=== PATIENT | female | born 1975 | race Caucasian/White ===

== ENCOUNTER 2018-06-23 07:53 | Emergency (ER) | payer SELFPAY ==
[~2018-06-23] VITALS: Ht 165.1 cm; Wt 89.4 kg
[~2018-06-23 07:53] MED LIST: ACET250T2 PO; ALBU2.5V5 IH; ALBU8.5H6 IH; CHOL100013 PO; FERR325T14 PO; FERR325T58 PO; METF10007 PO; METF500T16 PO; METF500T9 PO; MULT-208 PO; OXYC1TAB15 PO; PRED50TA PO; TOPI100T8 PO; TOPI200T6 PO
[2018-06-23] MEDS ORDERED: IBUPROFEN 600 MG TABLET. PO ONE (08:45)
[2018-06-23] MEDS ORDERED: HYDROcodone/APAP 5/325MG 1 TAB TABLET PO ONE (08:45)
--- NOTE | 2018-06-23 08:45 | PHYS DOC ---
Past Medical History Past Medical History: Diabetes-Type II, UTI Additional Past Medical Histor: psuedo tumors, obesity Past Surgical History: Tubal ligation Additional Past Surgical Histo: hernia repair,gallbladder Alcohol Use: None Drug Use: None Adult General Chief Complaint Chief Complaint: PAIN ON URINATION HPI HPI 42-year-old female presents to ER via POV with complaints of dysuria, urinary frequency, and intermittent abdominal cramping. Patient reports pain started yesterday and has gradually worsened patient reports history of UTIs denies any recent treatment. Patient states she's had full hysterectomy. Patient denies any vaginal symptoms or concerns for STDs. Patient denies any dxvl-dbm-[id number] medications for pain today but states she did take pain medication yesterday including Tylenol and hydrocodone. Patient states she did have 2 alcoholic beverages last night times denies nausea or vomiting. She denies any diarrhea. Patient denies fever or chills. Review of Systems Review of Systems Constitutional: Denies fever or chills [] Respiratory: Denies cough or shortness of breath [] Cardiovascular: No additional information not addressed in HPI [] GI: Denies nausea, vomiting, bloody stools or diarrhea. Reports right lower abdominal pain intermittent radiating into right lower back : Reports dysuria and urinary frequency. Denies hematuria or incontinence. Denies vaginal symptoms Musculoskeletal: Denies joint pain. Reports right lower abdominal pain does radiate into lower back intermittently Integument: Denies rash, swelling or skin lesions [] Neurologic: Denies headache, focal weakness or sensory changes [] Endocrine: Denies polyuria or polydipsia [] All other systems were reviewed and found to be within normal limits, except as documented in this note. Current Medications Current Medications Current Medications Medications (Trade) Dose Ordered Sig/Douglas Start Time Stop Time Status Last Admin Dose Admin Acetaminophen/ Hydrocodone Bitart (Lortab 5/325) 1 tab 1X ONCE 06/23/18 08:45 06/23/18 08:46 DC 06/23/18 08:49 1 TAB Ceftriaxone Sodium (Rocephin) 1 gm 1X ONCE 06/23/18 10:00 06/23/18 10:05 DC 06/23/18 10:48 1 GM Ibuprofen (Motrin) 600 mg 1X ONCE 06/23/18 08:45 06/23/18 08:46 DC 12/29/18 08:49 600 MG Allergies Allergies Allergies Coded Allergies Type Severity Reaction Last Updated Verified No Known Drug Allergies 03/31/16 No Physical Exam Physical Exam Constitutional: Well developed, well nourished, mild distress on initial exam, non-toxic appearance. [] HENT: Normocephalic, atraumatic, oropharynx moist, nose normal. [] Eyes: Pupils equal, conjunctiva normal, no discharge. [] Neck: Normal range of motion, supple Cardiovascular: Heart rate regular rhythm, no murmur [] Lungs & Thorax: Bilateral breath sounds clear to auscultation. Resp. equal/ nonlabored Abdomen: Bowel sounds normal, soft, mild diffuse tenderness suprapubic into right side abdomen with no focal area or rebound tenderness. No distention or rigidity. No masses, no pulsatile masses. [] Skin: Warm, dry, no erythema, no rash. [] Back: No tenderness, no CVA tenderness. [] Extremities: No tenderness, ROM intact, no edema. [] Neurologic: Alert and oriented X 3, normal motor function, normal sensory function, no focal deficits noted. [] Psychologic: Affect normal, judgement normal, mood normal. [] Current Patient Data Vital Signs Vital Signs Date Time Temp Pulse Resp B/P (MAP) Pulse Ox O2 Delivery O2 Flow Rate FiO2 06/23/18 11:21 85 20 126/67 (86) 99 06/23/18 08:32 98.6 98.6 Lab Values Laboratory Tests Test 06/23/18 08:25 06/23/18 10:10 Urine Collection Type Unknown Urine Color Yellow Urine Clarity Turbid Urine pH 6.0 Urine Specific War 1.015 Urine Protein 100 mg/dL (NEG-TRACE) Urine Glucose (UA) Negative mg/dL (NEG) Urine Ketones (Stick) Negative mg/dL (NEG) Urine Blood Large (NEG) Urine Nitrite Positive (NEG) Urine Bilirubin Negative (NEG) Urine Urobilinogen Dipstick 0.2 mg/dL (0.2 mg/dL) Urine Leukocyte Esterase Large (NEG) Urine RBC 20-40 /HPF (0-2) Urine WBC >40 /HPF (0-4) Urine Squamous Epithelial Cells Few /LPF Urine Bacteria Many /HPF (0-FEW) White Blood Count 11.4 x10^3/uL (4.0-11.0) H Red Blood Count 4.69 x10^6/uL (3.50-5.40) Hemoglobin 13.5 g/dL (12.0-15.5) Hematocrit 38.9 % (36.0-47.0) Mean Corpuscular Volume 83 fL (79-100) Mean Corpuscular Hemoglobin 29 pg (25-35) Mean Corpuscular Hemoglobin Concent 35 g/dL (31-37) Red Cell Distribution Width 13.5 % (11.5-14.5) Platelet Count 161 x10^3/uL (140-400) Neutrophils (%) (Auto) 81 % (31-73) H Lymphocytes (%) (Auto) 10 % (24-48) L Monocytes (%) (Auto) 7 % (0-9) Eosinophils (%) (Auto) 2 % (0-3) Basophils (%) (Auto) 1 % (0-3) Neutrophils # (Auto) 9.2 x10^3uL (1.8-7.7) H Lymphocytes # (Auto) 1.1 x10^3/uL (1.0-4.8) Monocytes # (Auto) 0.7 x10^3/uL (0.0-1.1) Eosinophils # (Auto) 0.2 x10^3/uL (0.0-0.7) Basophils # (Auto) 0.1 x10^3/uL (0.0-0.2) Sodium Level 137 mmol/L (136-145) Potassium Level 4.1 mmol/L (3.5-5.1) Chloride Level 103 mmol/L (98-107) Carbon Dioxide Level 25 mmol/L (21-32) Anion Gap 9 (6-14) Blood Urea Nitrogen 16 mg/dL (7-20) Creatinine 0.7 mg/dL (0.6-1.0) Estimated GFR (Cockcroft-Gault) 92.7 Glucose Level 163 mg/dL (70-99) H Calcium Level 8.3 mg/dL (8.5-10.1) L Laboratory Tests 06/23/18 10:10 Laboratory Tests 06/23/18 10:10 EKG EKG [] Radiology/Procedures Radiology/Procedures PROCEDURE: CT ABDOMEN PELVIS WO CONTRAST CT of the abdomen and pelvis without contrast, 06/23/2018: HISTORY: Right-sided flank pain, hematuria, dysuria Noncontrast scans were obtained with multiplanar reconstructions produced. No intrarenal calculi are identified. There are mildly prominent extrarenal pelves bilaterally. Portions of the right ureter are mildly prominent. No radiopaque ureteral calculus is evident. The urinary bladder is mildly distended. The unopacified liver is unremarkable. The gallbladder is surgically absent. No pancreatic abnormality is seen. The spleen is within normal limits in size. The abdominal aorta is unremarkable. No abdominal or pelvic adenopathy is seen. The uterus appears to be surgically absent. There is a moderate amount stool in the right colon. A medium density structure along the base of the cecum probably what represents complicated fluid in the cecum. A portion of the appendix is visualized and it is unremarkable. No free air or free fluid is evident in the abdomen or pelvis. IMPRESSION: 1. No urinary tract calculi are identified. 2. Mildly distention of the renal pelves may related to mild bladder distention. No obstructing ureteral process is identified. 3. Density along the base of the cecum which probably represents complicated fluid in the cecum. A cecal mass is less likely. CT follow-up to include GI tract contrast may be useful for further evaluation. PQRS Compliance Statement: One or more of the following individualized dose reduction techniques were utilized for this examination: 1. Automated exposure control 2. Adjustment of the mA and/or kV according to patient size 3. Use of iterative reconstruction technique Electronically signed by: Jose Luis Reddy MD (06/23/2018 10:37 AM) [facility] DICTATED and SIGNED BY: JOSE LUIS REDDY MD DATE: 06/23/18 1021 Course & Med Decision Making Course & Med Decision Making Pertinent Labs and Imaging studies reviewed. (See chart for details) 0935: On reevaluation patient reports her pain has improved since receiving medications. Labs discussed with WBCs at 11.4 no bands and BMP with NL renal function BUN/Cr 16/0.7. Discussed UA results with large blood and leuks positive nitrates and Micro showing 20-40 RBCs with more than 40 WBCs. Discussed plans to obtain CT abdomen and pelvis as patient reports she thinks she had previous history of kidney stones. Discussed CT results with pt and her husb. with report of "1. No urinary tract calculi are identified. 2. Mildly distention of the renal pelves may related to mild bladder distention. No obstructing ureteral process is identified. 3. Density along the base of the cecum which probably represents complicated fluid in the cecum". Discussed outpt f/u with PCP and/or GI for further eval. for density reporteed on CT. Pt was given IV Rocephin and will be discharged with Rx for Levaquin and Pyridium. Discussed if sxs persist f/u with PCP for re- eval and further care. OTC ibuprofen and/or tylenol PRN. Pt on re-exam is nontoxic in appearance and in no visible distress. Discharge instructions discussed. Pt comfortable with discharge plan as discussed. Education provided on s&s to return to ER for. Pt's case and plan of care was discussed with Dr. Cordova. Shelby Disclaimer Shelby Disclaimer This electronic medical record was generated, in whole or in part, using a voice recognition dictation system. Departure Departure Impression: Primary Impression: UTI (urinary tract infection) Disposition: HOME, SELF-CARE Condition: STABLE Referrals: NO PCP (PCP) SANGEETHA EMMANUEL MD Patient Instructions: Urinary Tract Infection Additional Instructions: Drink plenty of fluids. Tylenol and/or ibuprofen as needed for pain as directed on container. If symptoms persist or with concerns follow-up with your primary care physician in next 7 days for reevaluation. As discussed recommended follow-up with primary care physician or GI ( gastrointestinal) doctor for further evaluation. Scripts Levofloxacin (LEVAQUIN) 500 Mg Tablet 1 TAB PO DAILY, #5 TAB 0 Refills Prov: JAIRO SALCIDO APRN 06/23/18 Phenazopyridine Hcl (PYRIDIUM) 100 Mg Tablet 100 MG PO TID PRN for PAIN, #9 TAB 0 Refills Prov: JAIRO SALCIDO APRN 06/23/18 JAIRO SALCIDO APRN Jun 23, 2018 08:45
[2018-06-23 08:48] LABS: BILIRUBIN,URINE NEGATIVE (NEG); CLARITY,URINE TURBID; COLOR,URINE YELLOW; NITRITE,URINE POSITIVE (NEG); PROTEIN,URINE 100 mg/dL (NEG-TRACE); UROBILINOGEN,URINE 0.2 mg/dL (0.2 mg/dL)
[2018-06-23 09:30] LABS: BACTERIA,URINE MANY /HPF (0-FEW); RBC,URINE 20-40 /HPF (0-2); SQUAMOUS EPITHELIAL CELL,UR FEW /LPF; WBC,URINE >40 /HPF (0-4)
[2018-06-23] MEDS ORDERED: cefTRIAXone IV Push 1 GM VIAL. IVP ONE (10:00)
[2018-06-23 10:29] LABS: CALCIUM 8.3 mg/dL (8.5-10.1); CREATININE 0.7 mg/dL (0.6-1.0); GFR 92.7; POTASSIUM 4.1 mmol/L (3.5-5.1)
[2018-06-23 10:41] LABS: BASO # 0.1 x10^3/uL (0.0-0.2); BASO % 1 % (0-3); EOS # 0.2 x10^3/uL (0.0-0.7); EOS % 2 % (0-3); HEMATOCRIT 38.9 % (36.0-47.0); HEMOGLOBIN 13.5 g/dL (12.0-15.5); LYMPH # 1.1 x10^3/uL (1.0-4.8); LYMPH % 10 % (24-48); MEAN CORPUSCULAR HEMOGLOBIN 29 pg (25-35); MEAN CORPUSCULAR HGB CONC 35 g/dL (31-37); MEAN CORPUSCULAR VOLUME 83 fL (79-100); MONO # 0.7 x10^3/uL (0.0-1.1); MONO % 7 % (0-9); NEUT # 9.2 x10^3uL (1.8-7.7); NEUT % 81 % (31-73); PLATELET COUNT 161 x10^3/uL (140-400); RED BLOOD COUNT 4.69 x10^6/uL (3.50-5.40); RED CELL DISTRIBUTION WIDTH 13.5 % (11.5-14.5); WHITE BLOOD COUNT 11.4 x10^3/uL (4.0-11.0)
--- NOTE | 2018-06-23 10:41 | RAD ---
CT of the abdomen and pelvis without contrast, 06/23/2018: HISTORY: Right-sided flank pain, hematuria, dysuria Noncontrast scans were obtained with multiplanar reconstructions produced. No intrarenal calculi are identified. There are mildly prominent extrarenal pelves bilaterally. Portions of the right ureter are mildly prominent. No radiopaque ureteral calculus is evident. The urinary bladder is mildly distended. The unopacified liver is unremarkable. The gallbladder is surgically absent. No pancreatic abnormality is seen. The spleen is within normal limits in size. The abdominal aorta is unremarkable. No abdominal or pelvic adenopathy is seen. The uterus appears to be surgically absent. There is a moderate amount stool in the right colon. A medium density structure along the base of the cecum probably what represents complicated fluid in the cecum. A portion of the appendix is visualized and it is unremarkable. No free air or free fluid is evident in the abdomen or pelvis. IMPRESSION: 1. No urinary tract calculi are identified. 2. Mildly distention of the renal pelves may related to mild bladder distention. No obstructing ureteral process is identified. 3. Density along the base of the cecum which probably represents complicated fluid in the cecum. A cecal mass is less likely. CT follow-up to include GI tract contrast may be useful for further evaluation. PQRS Compliance Statement: One or more of the following individualized dose reduction techniques were utilized for this examination: 1. Automated exposure control 2. Adjustment of the mA and/or kV according to patient size 3. Use of iterative reconstruction technique Electronically signed by: Richard Reddy MD (06/23/2018 10:37 AM) [facility]
[2018-06-23] MEDS ORDERED: PHEN100T82 PO (10:47)
[2018-06-23] MEDS ORDERED: CEPH-264 PO (10:47)
[2018-06-23] MEDS ORDERED: LEVO500T59 PO (10:52)
[2018-06-23 11:21] VITALS: BP 126/67
== END 2018-06-23 11:22 | disposition home or self-care (01) ==
LOC: ER 07:53
DX: N39.0 Urinary tract infection, site not specified (principal); E11.9 Type 2 diabetes mellitus without complications; Z87.440 Personal history of urinary (tract) infections
CPT/HCPCS: 36415; 74176; 80048; 81001; 85025; 96374; 99284; J0696

== ENCOUNTER 2018-07-20 12:08 | Emergency (ER) | payer SELFPAY ==
[~2018-07-20] VITALS: Ht 165.1 cm; Wt 122.5 kg
[~2018-07-20 12:08] MED LIST changes: +CEPH-264 PO; +LEVO500T59 PO; +PHEN100T82 PO
[2018-07-20 12:29] VITALS: BP 133/82
--- NOTE | 2018-07-20 13:17 | RAD ---
4 view study of the right knee Clinical indications: Fell yesterday on ice. Right knee pain. FINDINGS: No acute fracture or dislocation or osteolytic process is seen. No significant knee joint effusion is seen. IMPRESSION: No acute osseous abnormality. Electronically signed by: Adam Mccarthy MD (07/20/2018 1:12 PM) [facility]
--- NOTE | 2018-07-20 13:34 | PHYS DOC ---
Past Medical History Past Medical History: Diabetes-Type II, UTI Additional Past Medical Histor: psuedo tumors, obesity Past Surgical History: Tubal ligation Additional Past Surgical Histo: hernia repair,gallbladder Alcohol Use: None Drug Use: None Adult General Chief Complaint Chief Complaint: KNEE INJURY HPI HPI Patient is a 42 year old female with history of diabetes type 2 who presents today with 8 out of 10 sharp right anterior knee pain that began yesterday after she slipped on ice and fell landing on her knee. Patient denies any loss of consciousness. Denies hitting her head on the ground. She states her pain is worse on range of motion. She is able to ambulate with no difficulties. Review of Systems Review of Systems Constitutional: Denies fever or chills [] Musculoskeletal: Reports right knee pain Integument: Denies rash or skin lesions [] Neurologic: Denies headache, focal weakness or sensory changes [] All other systems were reviewed and found to be within normal limits, except as documented in this note. Allergies Allergies Allergies Coded Allergies Type Severity Reaction Last Updated Verified No Known Drug Allergies 03/31/16 No Physical Exam Physical Exam Constitutional: Well developed, well nourished, no acute distress, non-toxic appearance. [] Skin: Warm, dry, no erythema, no rash. [] Back: No tenderness, no CVA tenderness. [] Extremities: Right knee with no obvious deformity. Bruising noted to the right anterior knee. Full range of motion to the right knee. Negative Donn sign, negative Siobhan sign, negative anterior-posterior drawer sign. +2 right pedal pulse. Cap refill less than 2 seconds the right toes. Neurologic: Alert and oriented X 3, normal motor function, normal sensory function, no focal deficits noted. [] Psychologic: Affect normal, judgement normal, mood normal. [] Current Patient Data Vital Signs Vital Signs Date Time Temp Pulse Resp B/P (MAP) Pulse Ox O2 Delivery O2 Flow Rate FiO2 07/20/18 12:29 98.7 72 20 133/82 (99) 99 Room Air 98.7 EKG EKG [] Radiology/Procedures Radiology/Procedures []PROCEDURE: KNEE RIGHT 4V 4 view study of the right knee Clinical indications: Fell yesterday on ice. Right knee pain. FINDINGS: No acute fracture or dislocation or osteolytic process is seen. No significant knee joint effusion is seen. IMPRESSION: No acute osseous abnormality. Electronically signed by: Refugio Mccarthy MD (07/20/2018 1:12 PM) [facility] DICTATED and SIGNED BY: REFUGIO MCCARTHY MD DATE: 07/20/18 9846 Course & Med Decision Making Course & Med Decision Making Pertinent Labs and Imaging studies reviewed. (See chart for details) This is a 42-year-old female patient presenting to the ED today with right knee pain after falling on it yesterday. Right knee x-rays interpreted by radiologist are negative for any acute findings. Patient discharged with instructions to ice elevate the extremity. [id number] medications recommended. Follow-up with orthopedic doctor in 1-2 weeks as needed. Dragon Disclaimer Dragon Disclaimer This electronic medical record was generated, in whole or in part, using a voice recognition dictation system. Departure Departure Impression: Primary Impression: Contusion of knee, right Additional Impression: Fall from standing Disposition: 01 HOME, SELF-CARE Condition: STABLE Referrals: NO PCP (PCP) LOCO RIOS II, MD Follow-up in 1-2 weeks if symptoms persist Patient Instructions: Contusion, Fall Prevention and Home Safety Additional Instructions: You were evaluated in the emergency room for right knee pain after falling. Your right knee x-rays are negative for any acute findings. Ice and elevate the extremity. Take [id number] medications as needed. Follow-up with your own doctor or the provided orthopedic doctor in 1-2 weeks as needed. Problem Qualifiers Primary Impression: Contusion of knee, right Encounter type: initial encounter Qualified Codes: S80.01XA - Contusion of right knee, initial encounter Additional Impression: Fall from standing Encounter type: initial encounter Qualified Codes: W19.XXXA - Unspecified fall, initial encounter LIYADANIEL CARMONA DIRECTOR OF CARDIAC REHABILITATION Jul 20, 2018 13:34
== END 2018-07-20 13:55 | disposition home or self-care (01) ==
LOC: ER 12:08
DX: S80.01XA Contusion of right knee, initial encounter (principal); E11.9 Type 2 diabetes mellitus without complications; E66.9 Obesity, unspecified; Z68.41 Body mass index [BMI] 40.0-44.9, adult; Z87.440 Personal history of urinary (tract) infections; Z98.51 Tubal ligation status; W00.0XXA Fall on same level due to ice and snow, initial encounter; Y93.89 Activity, other specified; Y92.89 Other specified places as the place of occurrence of the external cause; Y99.8 Other external cause status
CPT/HCPCS: 73564; 99283

== ENCOUNTER 2018-12-21 16:55 | Emergency (ER) | payer SELFPAY ==
[~2018-12-21] VITALS: Ht 157.5 cm; Wt 124.7 kg
[2018-12-21 17:15] VITALS: BP 117/90
[2018-12-21] MEDS ORDERED: IPRATRPIUM/ALBUTEROL 0.5/2.5MG 3 ML NEBU. NEB ONE (17:15)
[2018-12-21] MEDS ORDERED: predniSONE 10 MG TABLET PO ONE (17:15)
--- NOTE | 2018-12-21 17:50 | PHYS DOC ---
Past Medical History Past Medical History: Diabetes-Type II, UTI Additional Past Medical Histor: psuedo tumors, obesity Past Surgical History: Tubal ligation Additional Past Surgical Histo: hernia repair,gallbladder Alcohol Use: None Drug Use: None Adult General Chief Complaint Chief Complaint: ASTHMA HPI HPI Patient is a 43 year old female with history of asthma presents for evaluation of asthma exacerbation for 3 days. She reports used the last of her nebulizer medications today. She has albuterol inhaler that she has been using consis tently. Denies fevers. Review of Systems Review of Systems Constitutional: Denies fever or chills [] Eyes: Denies change in visual acuity, redness, or eye pain [] HENT: Denies nasal congestion or sore throat [] Respiratory: REPORTS wheeze and shortness of breath[] Cardiovascular: No additional information not addressed in HPI [] GI: Denies abdominal pain, nausea, vomiting, bloody stools or diarrhea [] : Denies dysuria or hematuria [] Musculoskeletal: Denies back pain or joint pain [] Integument: Denies rash or skin lesions [] Neurologic: Denies headache, focal weakness or sensory changes [] Endocrine: Denies polyuria or polydipsia [] All other systems were reviewed and found to be within normal limits, except as documented in this note. Current Medications Current Medications Current Medications Medications (Trade) Dose Ordered Sig/Douglas Start Time Stop Time Status Last Admin Dose Admin Albuterol/ Ipratropium (Duoneb) 3 ml 1X ONCE 12/21/18 17:15 12/21/18 17:16 DC 12/21/18 17:28 3 ML Prednisone (Prednisone) 50 mg 1X ONCE 12/21/18 17:15 12/21/18 17:16 DC 12/21/18 17:15 50 MG Allergies Allergies Allergies Coded Allergies Type Severity Reaction Last Updated Verified No Known Drug Allergies 03/31/16 No Physical Exam Physical Exam Constitutional: Well developed, well nourished, no acute distress, non-toxic appearance. [] HENT: Normocephalic, atraumatic, bilateral external ears normal, oropharynx moist, no oral exudates, nose normal. [] Eyes: PERRLA, EOMI, conjunctiva normal, no discharge. [] Neck: Normal range of motion, no tenderness, supple, no stridor. [] Cardiovascular:Heart rate regular rhythm, no murmur [] Lungs & Thorax: Bilateral breath sounds clear to auscultation [] Abdomen: Bowel sounds normal, soft, no tenderness, no masses, no pulsatile masses. [] Skin: Warm, dry, no erythema, no rash. [] Back: No tenderness, no CVA tenderness. [] Extremities: No tenderness, no cyanosis, no clubbing, ROM intact, no edema. [] Neurologic: Alert and oriented X 3, normal motor function, normal sensory function, no focal deficits noted. [] Psychologic: Affect normal, judgement normal, mood normal. [] Current Patient Data Vital Signs Vital Signs Date Time Temp Pulse Resp B/P (MAP) Pulse Ox O2 Delivery O2 Flow Rate FiO2 12/21/18 17:30 96 Room Air 12/21/18 17:15 98.6 93 16 117/90 (99) 98.6 EKG EKG [] Radiology/Procedures Radiology/Procedures [] Course & Med Decision Making Course & Med Decision Making Pertinent Labs and Imaging studies reviewed. (See chart for details) [Patient states she is feeling better decreased wheezing and shortness of air after prednisone and DuoNeb treatment in emergency room, she is requesting prescriptions for nebulizer and another inhaler. She is also given a prescription for prednisone. Recommend follow-up with primary care doctor. Return to ER for new or worsening symptoms.] Dragon Disclaimer Dragon Disclaimer This electronic medical record was generated, in whole or in part, using a voice recognition dictation system. Departure Departure Impression: Primary Impression: Asthma exacerbation Disposition: 01 HOME, SELF-CARE Condition: STABLE Referrals: NO PCP (PCP) Patient Instructions: Asthma, Adult Scripts Prednisone (PREDNISONE) 50 Mg Tablet 1 TAB PO DAILY, #5 TAB Prov: AUTUMN SONG APRN 12/21/18 Ipratropium/Albuterol Sulfate (DUONEB 0.5-3(2.5) MG/3 ML) 3 Ml Ampul.neb 3 ML NEB QID, #30 EACH Prov: AUTUMN SONG APRN 12/21/18 Albuterol Sulfate (Proventil Hfa) 6.7 Gm Hfa.aer.ad 1 PUFF INH PRN Q6HRS PRN for SHORTNESS OF BREATH, #1 INHALER Prov: AUTUMN SONG APRN 12/21/18 Problem Qualifiers Primary Impression: Asthma exacerbation Asthma severity: mild Asthma persistence: intermittent Qualified Codes: J45.21 - Mild intermittent asthma with (acute) exacerbation AUTUMN SONG SENIOR QA [employer]OMATION ENGINEER Dec 21, 2018 17:50
[2018-12-21] MEDS ORDERED: IPRA3AMP29 NEB (18:01)
[2018-12-21] MEDS ORDERED: PROVENTIL HFA6.7 G2 INH (18:01)
[2018-12-21] MEDS ORDERED: PRED50TA PO (18:11)
== END 2018-12-21 18:37 | disposition home or self-care (01) ==
LOC: ER 16:55
DX: J45.21 Mild intermittent asthma with (acute) exacerbation (principal); E11.9 Type 2 diabetes mellitus without complications; E66.9 Obesity, unspecified; Z68.43 Body mass index [BMI] 50.0-59.9, adult; Z98.51 Tubal ligation status
CPT/HCPCS: 94640; 99283; J7512; J7620

== ENCOUNTER 2019-07-07 17:36 | Emergency (ER) | payer SELFPAY ==
[~2019-07-07 17:36] MED LIST changes: +ALBU2.5V5 NEB; +ALBU2.5V8 INH; +IPRA3AMP29 NEB; +METF500T11 PO; -METF500T9 PO; +PROVENTIL HFA6.7 G2 INH
[2019-07-07 17:44] VITALS: BP 126/84
[2019-07-07] MEDS ORDERED: predniSONE 20 MG TABLET PO ONE (18:00)
[2019-07-07] MEDS ORDERED: IPRATRPIUM/ALBUTEROL 0.5/2.5MG 3 ML NEBU. NEB ONE (18:00)
[2019-07-07] MEDS ORDERED: BENZONATATE 100 MG CAPSULE. PO ONE (18:00)
--- NOTE | 2019-07-07 18:02 | PHYS DOC ---
Past Medical History Past Medical History: Asthma, Diabetes-Type II, UTI Additional Past Medical Histor: psuedo tumors, obesity (DANIEL NAVARRO APRN) Past Surgical History: Tubal ligation Additional Past Surgical Histo: hernia repair,gallbladder (DANIEL NAVARRO APRN) Alcohol Use: None Drug Use: None (DANIEL NAVARRO APRN) Attending Signature I have participated in the care of this patient and I have reviewed and agree with all pertinent clinical information above including history, exam, and recommendations. (LUIS DANIEL ROSAS MD) Adult General Chief Complaint Chief Complaint: ASTHMA HPI HPI Patient is a 43 year old female with history of asthma who presents to the ED today complaining of wheezing and a cough that began 3 or 4 days. Patient denies any fever. She reports she has tried using her breathing treatments with no relief. (DANIEL NAVARRO APRN) Review of Systems Review of Systems Constitutional: Denies fever or chills [] Eyes: Denies change in visual acuity, redness, or eye pain [] HENT: Denies nasal congestion or sore throat [] Respiratory: Reports cough and wheezing, denies shortness of breath [] Cardiovascular: No additional information not addressed in HPI [] GI: Denies abdominal pain, nausea, vomiting, bloody stools or diarrhea [] : Denies dysuria or hematuria [] Musculoskeletal: Denies back pain or joint pain [] Integument: Denies rash or skin lesions [] Neurologic: Denies headache, focal weakness or sensory changes [] All other systems were reviewed and found to be within normal limits, except as documented in this note. (DANIEL NAVARRO APRN) Current Medications Current Medications Current Medications Medications (Trade) Dose Ordered Sig/Douglas Start Time Stop Time Status Last Admin Dose Admin Albuterol/ Ipratropium (Duoneb) 3 ml 1X ONCE 07/07/19 18:00 07/07/19 18:01 DC 07/07/19 18:01 3 ML Benzonatate (Tessalon Perle) 100 mg 1X ONCE 07/07/19 18:00 07/07/19 18:01 DC 07/07/19 18:12 100 MG Prednisone (Prednisone) 60 mg 1X ONCE 07/07/19 18:00 07/07/19 18:01 DC 07/07/19 18:13 60 MG (LUIS DANIEL ROSAS MD) Allergies Allergies Allergies Coded Allergies Type Severity Reaction Last Updated Verified No Known Drug Allergies 03/31/16 No (LUIS DANIEL ROSAS MD) Physical Exam Physical Exam Constitutional: Well developed, well nourished, no acute distress, non-toxic appearance. [] HENT: Normocephalic, atraumatic, bilateral external ears normal, oropharynx moist, no oral exudates, nose normal. [] Eyes: PERRLA, EOMI, conjunctiva normal, no discharge. [] Neck: Normal range of motion, no tenderness, supple, no stridor. [] Cardiovascular:Heart rate regular rhythm, no murmur [] Lungs & Thorax: Patient is actively coughing, diffuse wheezing throughout the lung bases Abdomen: Bowel sounds normal, soft, no tenderness, no masses, no pulsatile masses. [] Skin: Warm, dry, no erythema, no rash. [] Back: No tenderness, no CVA tenderness. [] Extremities: No tenderness, no cyanosis, no clubbing, ROM intact, no edema. [] Neurologic: Alert and oriented X 3, normal motor function, normal sensory function, no focal deficits noted. [] Psychologic: Affect normal, judgement normal, mood normal. [] (DANIEL NAVARRO APRN) Current Patient Data Vital Signs Vital Signs Date Time Temp Pulse Resp B/P (MAP) Pulse Ox O2 Delivery O2 Flow Rate FiO2 07/07/19 18:02 Room Air 07/07/19 17:44 98.1 106 18 126/84 (98) 100 98.1 (LUIS DANIEL ROSAS MD) EKG EKG [] (DANIEL NAVARRO APRN) Radiology/Procedures Radiology/Procedures [] (DANIEL NAVARRO APRN) Course & Med Decision Making Course & Med Decision Making Pertinent Labs and Imaging studies reviewed. (See chart for details) This is a 43-year-old female patient presenting to the ED today with cough and wheezing that began 3-4 days ago. History of asthma. O2 sats 100% on room air. Patient was given a DuoNeb treatment and prednisone in the ED. Lungs have cleared up. D/c to home. f/u with PcP in the course of this week (DANIEL NAVARRO APRN) Dragon Disclaimer Dragon Disclaimer This electronic medical record was generated, in whole or in part, using a voice recognition dictation system. (DANIEL NAVARRO APRN) Departure Departure Impression: Primary Impression: Asthma exacerbation Disposition: 01 HOME, SELF-CARE Condition: STABLE Referrals: NO PCP (PCP) followup in 1-2 weeks with your doctor Patient Instructions: Asthma, Adult, [id number] Additional Instructions: You were seen for asthma exacerbation, use the prescribed medications as ordered. Follow-up with your own doctor in the course of this week or next week. Come back to the ED at any point symptoms worsen Scripts Ipratropium/Albuterol Sulfate (DUONEB 0.5-3(2.5) MG/3 ML) 3 Ml Ampul.neb 3 ML NEB QID, #150 ML Prov: DANIEL NAVARRO APRN 07/07/19 Prednisone (PREDNISONE) 50 Mg Tablet 1 TAB PO DAILY, #4 TAB Prov: DANIEL NAVARRO APRN 07/07/19 Prednisone (PREDNISONE) 50 Mg Tablet 1 TAB PO DAILY, #4 TAB Prov: DANIEL NAVARRO APRN 07/07/19 Ipratropium/Albuterol Sulfate (DUONEB 0.5-3(2.5) MG/3 ML) 3 Ml Ampul.neb 3 ML NEB QID, #150 ML Prov: DANIEL NAVARRO APRN 07/07/19 Problem Qualifiers Primary Impression: Asthma exacerbation Asthma severity: mild Asthma persistence: unspecified Qualified Codes: J45.901 - Unspecified asthma with (acute) exacerbation DANIEL NAVARRO APRN Jul 07, 2019 18:02 LUIS DANIEL ROSAS MD Jul 08, 2019 05:44
[2019-07-07] MEDS ORDERED: IPRA3AMP29 NEB ×2 (18:30→21:50)
[2019-07-07] MEDS ORDERED: PRED50TA PO ×2 (18:30→21:50)
== END 2019-07-07 18:33 | disposition home or self-care (01) ==
LOC: ER 17:36
DX: J45.901 Unspecified asthma with (acute) exacerbation (principal); E11.9 Type 2 diabetes mellitus without complications; E66.01 Morbid (severe) obesity due to excess calories; Z68.1 Body mass index [BMI] 19.9 or less, adult; Z98.51 Tubal ligation status; Z98.890 Other specified postprocedural states
CPT/HCPCS: 94640; 99283; J7512; J7620

== ENCOUNTER 2019-08-08 19:27 | Emergency (ER) | payer OTHER ==
[~2019-08-08] VITALS: Ht 157.5 cm; Wt 122.7 kg
[2019-08-08 19:59] VITALS: BP 169/76
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
[2019-08-08] MEDS ORDERED: NAPR-514 PO (21:38)
[2019-08-08] MEDS ORDERED: CYCL10TA2 PO (21:38)
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
== END 2019-08-08 21:45 | disposition home or self-care (01) ==
LOC: ER 19:27
DX: G89.11 Acute pain due to trauma (principal); M25.512 Pain in left shoulder; M54.42 Lumbago with sciatica, left side; J45.909 Unspecified asthma, uncomplicated; E11.9 Type 2 diabetes mellitus without complications; E66.8 Other obesity; Z68.42 Body mass index [BMI] 45.0-49.9, adult; Z98.51 Tubal ligation status; Z98.890 Other specified postprocedural states; V89.2XXA Person injured in unspecified motor-vehicle accident, traffic, initial encounter; Y93.89 Activity, other specified; Y92.89 Other specified places as the place of occurrence of the external cause; Y99.8 Other external cause status
CPT/HCPCS: 72131; 73030; 99284

== ENCOUNTER 2019-10-26 12:16 | Emergency (ER) | payer SELFPAY ==
[~2019-10-26] VITALS: Ht 165.1 cm; Wt 123.0 kg
[~2019-10-26 12:16] MED LIST changes: +CYCL10TA2 PO; +NAPR-514 PO
[2019-10-26 12:25] VITALS: BP 163/72
--- NOTE | 2019-10-26 12:50 | PHYS DOC ---
Past Medical History Past Medical History: Asthma, Diabetes-Type II, UTI Additional Past Medical Histor: psuedo tumors, obesity Past Surgical History: Tubal ligation Additional Past Surgical Histo: hernia repair,gallbladder Smoking Status: Never Smoker Alcohol Use: None Drug Use: None General Adult EDM: Chief Complaint: ASTHMA HPI: HPI: Patient is a 43-year-old female with a history of asthma. She states her asthma has been acting up over the last 3 days. She states she is nearly out of her metered-dose inhaler. Usually when she gets to this point she says she needs steroids. She denies any fever chills or sweats. She denies any hemoptysis. He is not a smoker. [] Review of Systems: Review of Systems: Constitutional: Denies fever or chills. [] Eyes: Denies change in visual acuity. [] HENT: Denies nasal congestion or sore throat. [] Respiratory: Per HPI [] Cardiovascular: Denies chest pain or edema. [] GI: Denies abdominal pain, nausea, vomiting, bloody stools or diarrhea. [] : Denies dysuria. [] Musculoskeletal: Denies back pain or joint pain. [] Integument: Denies rash. [] Neurologic: Denies headache, focal weakness or sensory changes. [] Endocrine: Denies polyuria or polydipsia. [] Lymphatic: Denies swollen glands. [] Psychiatric: Denies depression or anxiety. [] Heart Score: Risk Factors: Risk Factors: DM, Current or recent (<one month) smoker, HTN, HLP, family history of CAD, obesity. Risk Scores: Score 0 - 3: 2.5% MACE over next 6 weeks - Discharge Home Score 4 - 6: 20.3% MACE over next 6 weeks - Admit for Clinical Observation Score 7 - 10: 72.7% MACE over next 6 weeks - Early Invasive Strategies Allergies: Allergies: Allergies Coded Allergies Type Severity Reaction Last Updated Verified No Known Drug Allergies 03/31/16 No Physical Exam: PE: Constitutional: Well developed, well nourished, no acute distress, non-toxic appearance. [] HENT: Normocephalic, atraumatic, bilateral external ears normal, oropharynx moist, no oral exudates, nose normal. [] Eyes: PERRLA, EOMI, conjunctiva normal, no discharge. [] Neck: Normal range of motion, no tenderness, supple, no stridor. [] Cardiovascular:Heart rate regular rhythm, no murmur [] Lungs & Thorax: Scattered wheezes throughout both lungs [] Abdomen: Bowel sounds normal, soft, no tenderness, no masses, no pulsatile mas ses. [] Skin: Warm, dry, no erythema, no rash. [] Back: No tenderness, no CVA tenderness. [] Extremities: No tenderness, no cyanosis, no clubbing, ROM intact, no edema. [] Neurologic: Alert and oriented X 3, normal motor function, normal sensory function, no focal deficits noted. [] Psychologic: Affect normal, judgement normal, mood normal. [] Current Patient Data: Vital Signs: Vital Signs Date Time Temp Pulse Resp B/P (MAP) Pulse Ox O2 Delivery O2 Flow Rate FiO2 10/26/19 12:25 98.8 80 16 163/72 (102) 96 Room Air 98.8 EKG: EKG: [] Radiology/Procedures: Radiology/Procedures: [] Course & Med Decision Making: Course & Med Decision Making Pertinent Labs and Imaging studies reviewed. (See chart for details) [] EncrypTix Disclaimer: EncrypTix Disclaimer: This electronic medical record was generated, in whole or in part, using a voice recognition dictation system. Departure Departure Impression: Primary Impression: Asthma exacerbation Qualified Codes: J45.41 - Moderate persistent asthma with (acute) exacerbation Disposition: HOME, SELF-CARE Condition: IMPROVED Referrals: NO PCP (PCP) Patient Instructions: Asthma, Acute Bronchospasm Scripts Albuterol Sulfate (PROAIR HFA INHALER) 8.5 Gm Hfa.aer.ad 2 PUFF IH PRN Q4-6HRS PRN for wheezing for 21 Days, #1 INHALER 0 Refills Prov: PHILIP PEREZ DO 10/26/19 Prednisone (PREDNISONE) 20 Mg Tablet 3 TAB PO DAILY PRN for COUGH for 7 Days, #21 TAB Prov: PHILIP PEREZ DO 10/26/19 PHILIP PEREZ DO October 26, 2019 12:50
[2019-10-26] MEDS ORDERED: ALBU2.5V8 IH (12:58)
[2019-10-26] MEDS ORDERED: PRED20TA PO (12:58)
[2019-10-26] MEDS: IPRATRPIUM/ALBUTEROL 0.5/2.5MG 3 ML NEBU. NEB ONE (13:00)
[2019-10-26] MEDS: predniSONE 20 MG TABLET PO ONE (13:00)
== END 2019-10-26 13:14 | disposition home or self-care (01) ==
LOC: ER 12:16
DX: J45.41 Moderate persistent asthma with (acute) exacerbation (principal); J45.909 Unspecified asthma, uncomplicated; E11.9 Type 2 diabetes mellitus without complications; E66.9 Obesity, unspecified; Z68.42 Body mass index [BMI] 45.0-49.9, adult; Z98.51 Tubal ligation status; Z98.890 Other specified postprocedural states
CPT/HCPCS: 94640; 99283; J7512

== ENCOUNTER 2019-11-19 19:06 | Emergency (ER) | payer SELFPAY ==
[~2019-11-19] VITALS: Ht 165.1 cm; Wt 131.8 kg
[~2019-11-19 19:06] MED LIST changes: +ALBU2.5V8 IH; +METF-658 PO; -METF500T11 PO; +PRED20TA PO
[2019-11-19] MEDS ORDERED: predniSONE 10 MG TABLET PO ONE (19:30)
[2019-11-19] MEDS ORDERED: ALBUTEROL SULFATE 2.5 MG/3 ML NEBU. CONT NEB ONE (19:30)
--- NOTE | 2019-11-19 19:32 | PHYS DOC ---
Past Medical History Past Medical History: Asthma, Diabetes-Type II, UTI Additional Past Medical Histor: psuedo tumors, obesity Past Surgical History: Tubal ligation Additional Past Surgical Histo: hernia repair,gallbladder Smoking Status: Never Smoker Alcohol Use: None Drug Use: None General Adult EDM: Chief Complaint: ASTHMA HPI: HPI: Patient is a 43 year old female who presents with wheezing and soa x 2 days. She states she has been doing nebulized treatments at home with the last being before coming to the ED. She states she got a new albuterol inhaler but it is not working because nothing is coming out of it. Denies fevers, cough, abdominal pain, nausea, vomiting, diarrhea, dizziness, headache, loc, numbnes or tingling, focal weakness, vision changes. Denies any pain. Review of Systems: Review of Systems: Respiratory: Denies cough. +shortness of breath. [] Heart Score: Risk Factors: Risk Factors: DM, Current or recent (<one month) smoker, HTN, HLP, family history of CAD, obesity. Risk Scores: Score 0 - 3: 2.5% MACE over next 6 weeks - Discharge Home Score 4 - 6: 20.3% MACE over next 6 weeks - Admit for Clinical Observation Score 7 - 10: 72.7% MACE over next 6 weeks - Early Invasive Strategies Allergies: Allergies: Allergies Coded Allergies Type Severity Reaction Last Updated Verified No Known Drug Allergies 03/31/16 No Physical Exam: PE: Constitutional: Well developed, well nourished, no acute distress, non-toxic appearance. [] HENT: Normocephalic, atraumatic, bilateral external ears normal, oropharynx moist, no oral exudates, nose normal. [] Eyes: PERRLA, EOMI, conjunctiva normal, no discharge. [] Neck: Normal range of motion, no tenderness, supple, no stridor. [] Cardiovascular:Heart rate regular rhythm, no murmur [] Lungs & Thorax: Bilateral breath sounds diminished with expiratory wheezes to auscultation [] Abdomen: Bowel sounds normal, soft, no tenderness, no masses, no pulsatile masses. [] Skin: Warm, dry, no erythema, no rash. [] Back: No tenderness, no CVA tenderness. [] Extremities: No tenderness, no cyanosis, no clubbing, ROM intact, no edema. [] Neurologic: Alert and oriented X 3, normal motor function, normal sensory function, no focal deficits noted. [] Psychologic: Affect normal, judgement normal, mood normal. [] EKG: EKG: [] Radiology/Procedures: Radiology/Procedures: [] Course & Med Decision Making: Course & Med Decision Making Pertinent Labs and Imaging studies reviewed. (See chart for details) Vital sign wnl. Alert and oriented. Speaks in full clear sentences. Skin pink warm and dry. No extremity edema. Denies smoking or drug use. Lungs are diminished and have expiratory wheezing throughout all lobes. Patient is given Prednisone and 1 hour Albuterol treatment. Patient states she is feeling much better. Lungs are much clearer and inspiratory expiratory wheezes can still be heard. Patient's vital signs remai ifeoma stable. Patient states she is ready to go. Chest xray read by Dr Ortiz as possible Infiltrates. I will give the patient a Z Pack also. [] Dragon Disclaimer: Dragon Disclaimer: This electronic medical record was generated, in whole or in part, using a voice recognition dictation system. Departure Departure Impression: Primary Impression: Asthma exacerbation Qualified Codes: J45.31 - Mild persistent asthma with (acute) exacerbation Disposition: HOME, SELF-CARE Condition: STABLE Referrals: NO PCP (PCP) Patient Instructions: Asthma, Adult Additional Instructions: Follow up with primary care provider. Take medications as prescribed. Scripts Azithromycin (AZITHROMYCIN TABLET) 250 Mg Tablet 1 PKG PO UD for 5 Days, #6 TAB 0 Refills 2 the first day followed by 1 for days 2-5 Prov: SHANTELL SAUCEDA APRN 11/19/19 Methylprednisolone (MEDROL) 4 Mg Tab.ds.pk 1 PKG PO UD, #1 PKG Prov: SHANTELL SAUCEDA APRN 11/19/19 Albuterol Sulfate (PROAIR HFA INHALER) 8.5 Gm Hfa.aer.ad 1 PUFF INH PRN Q6HRS PRN for SHORTNESS OF BREATH, #1 INHALER 0 Refills Prov: SHANTELL SAUCEDA [employer]ANT 11/19/19 SHANTELL SAUCEDA APRN November 19, 2019 19:32
[2019-11-19] MEDS ORDERED: ALBU2.5V8 INH (20:00)
[2019-11-19] MEDS ORDERED: METH4TAB2 PO (20:00)
[2019-11-19 20:13] LABS: BARBITURATES NEG (NEG); BENZODIAZEPINES NEG (NEG); CANNABINOIDS NEG (NEG); COCAINE NEG (NEG); METHADONE NEG (NEG); OPIATES NEG (NEG); PHENCYCLIDINE NEG (NEG)
[2019-11-19 20:16] LABS: AMPHETAMINE/METHAMPHETAMINE NEG (NEG)
[2019-11-19] MEDS ORDERED: AZIT250T6 PO (20:43)
[2019-11-19 20:46] VITALS: BP 126/60
--- NOTE | 2019-11-19 20:47 | RAD ---
PORTABLE CHEST 1V INDICATION: Wheezing. COMPARISON STUDY: 03/28/2016. FINDINGS: Lungs: Normal lung volume. No pulmonary mass or consolidation. The tracheobronchial tree and hilar structures are normal. Pleura: No pleural effusion or pneumothorax. Heart and Mediastinum: The cardiomediastinal silhouette is normal. The great vessels of the thorax are normal. IMPRESSION: No focal airspace disease. Electronically signed by: En Vasquez MD (11/19/2019 8:44 PM) [id number]
== END 2019-11-19 21:15 | disposition home or self-care (01) ==
LOC: ER 19:06
DX: J45.31 Mild persistent asthma with (acute) exacerbation (principal); E11.9 Type 2 diabetes mellitus without complications
CPT/HCPCS: 71045; 80307; 94644; 99285; J7512; J7613

== ENCOUNTER 2020-04-12 17:14 | Emergency (ER) | payer SELFPAY ==
[~2020-04-12] VITALS: Ht 165.1 cm; Wt 118.1 kg
[~2020-04-12 17:14] MED LIST changes: +AZIT250T6 PO; +METH4TAB2 PO
[2020-04-12 17:28] VITALS: BP 119/88
[2020-04-12] MEDS ORDERED: predniSONE 10 MG TABLET PO ONE (17:45)
[2020-04-12] MEDS ORDERED: IPRATRPIUM/ALBUTEROL 0.5/2.5MG 3 ML NEBU. NEB ONE (17:45)
[2020-04-12] MEDS ORDERED: ALBUTEROL SULFATE 2.5 MG/3 ML NEBU. NEB ONE (17:45)
[2020-04-12] MEDS ORDERED: ALBU2.5V8 IH (18:28)
[2020-04-12] MEDS ORDERED: IPRA3AMP29 NEB (18:28)
--- NOTE | 2020-04-12 18:28 | ED.ADGEN ---
Past Medical History Past Medical History: Asthma, Diabetes-Type II, UTI, Other Additional Past Medical Histor: psuedo tumors, obesity Past Surgical History: Cholecystectomy, Hysterectomy, Tubal ligation Additional Past Surgical Histo: hernia repair Smoking Status: Never Smoker Alcohol Use: None Drug Use: None General Adult EDM: Chief Complaint: ASTHMA HPI: HPI: Patient is a 44 year old female who presents emergency department with complaints of asthma problems for the last week. Patient states that she started having increased wheezing a week ago [place]. She is currently out of her nebulizer treatments and her albuterol inhaler. She denies any fever, chest pain, palpitations, abdominal pain, nausea, vomiting, diarrhea, rash, sore throat, ear pain, headache, or dysuria. She reports nasal congestion, dry cough, and chest tightness. She currently denies any pain. Review of Systems: Review of Systems: Complete ROS is negative unless otherwise noted in HPI. Current Medications: Current Medications Medications (Trade) Dose Ordered Sig/Douglas Start Time Stop Time Status Last Admin Dose Admin Albuterol Sulfate (Ventolin Neb Soln) 2.5 mg 1X ONCE 04/12/20 17:45 04/12/20 17:46 DC 04/12/20 17:55 2.5 MG Albuterol/ Ipratropium (Duoneb) 3 ml 1X ONCE 04/12/20 17:45 04/12/20 17:46 DC 04/12/20 17:54 3 ML Prednisone (Prednisone) 50 mg 1X ONCE 04/12/20 17:45 04/12/20 17:46 DC 04/12/20 18:05 50 MG Allergies: Allergies: Allergies Coded Allergies Type Severity Reaction Last Updated Verified No Known Drug Allergies 03/31/16 No Physical Exam: PE: See Above Constitutional: Well developed, well nourished, no acute distress, non-toxic appearance, normal posture, obese. [] HENT: Normocephalic, atraumatic, bilateral external ears normal, nose normal. [] Eyes: PERRLA, EOMI, conjunctiva normal, no discharge. [] Neck: Normal range of motion, no stridor. [] Cardiovascular:Heart rate regular rhythm Lungs & Thorax: Respirations even with inspiratory and expiratory wheezes throughout all rios, mild respiratory distress, speaking 4-5 words at a time, mild intercostal retractions Skin: Warm, dry, no erythema, no rash. [] Extremities: No cyanosis, ROM intact, no edema. [] Neurologic: Alert and oriented X 3, no focal deficits noted. [] Psychologic: Affect normal, judgement normal, mood normal. [] Current Patient Data: Vital Signs: Vital Signs Date Time Temp Pulse Resp B/P (MAP) Pulse Ox O2 Delivery O2 Flow Rate FiO2 04/12/20 17:53 95 Room Air 04/12/20 17:28 97.8 91 20 119/88 (98) 97.8 EKG: EKG: [] Heart Score: Risk Factors: Risk Factors: DM, Current or recent (<one month) smoker, HTN, HLP, family history of CAD, obesity. Risk Scores: Score 0 - 3: 2.5% MACE over next 6 weeks - Discharge Home Score 4 - 6: 20.3% MACE over next 6 weeks - Admit for Clinical Observation Score 7 - 10: 72.7% MACE over next 6 weeks - Early Invasive Strategies Radiology/Procedures: Radiology/Procedures: [] Course & Med Decision Making: Course & Med Decision Making Pertinent Labs and Imaging studies reviewed. (See chart for details) 44-year-old female presents emergency room with complaints of an asthma exacerbation for the last week. She was given a DuoNeb and albuterol treatment in the emergency department she was also given 50 mg of prednisone p.o., patient reported feeling much better after these medications, she was no longer wheezing and her lungs were clear throughout Prescription written for prednisone 50 mg tablets 1 tablet daily x4 days starting tomorrow, failure, and DuoNeb nebulizer treatments. The patient was instructed to follow-up with primary care doctor in 1 to 2 days for repeat evaluation, return to the ER symptoms worsen. Patient verbalized an understanding of home care, medications, follow-up, and return to ED instructions and was in agreement with the plan of care. [] Shelby Disclaimer: Shelby Disclaimer: This electronic medical record was generated, in whole or in part, using a voice recognition dictation system. Departure Departure Impression: Primary Impression: Asthma exacerbation Disposition: 01 DC HOME SELF CARE/HOMELESS Condition: STABLE Referrals: NO PCP (PCP) Patient Instructions: Asthma Prevention-Brief, Asthma, Acute Bronchospasm Additional Instructions: Fill prescription(s) and use as directed. Alternate Tylenol or ibuprofen as needed for pain/fever. Increase clear fluids. Avoid airway triggers such as smoke, fragrance, dust, and pollen. Follow-up with your primary care doctor in 1 to 2 days. Return to the ER if symptoms worsen. [facility] [address] [place] [address] [facility] [address] [place] [address] [facility] [address] [place] [address] [facility] [address] [place] [address] [facility] [address] [place] [address] [address] [place] [address] [address] [place] [address] [facility] [address] [place] [address] [employer] [address] [place] [address] [facility] [address] [place] [address] Scripts Prednisone (PREDNISONE) 50 Mg Tablet 1 TAB PO DAILY for 4 Days, #4 TAB 0 Refills BEGIN TAKING ON 04/13/20 Prov: EVY LEVINE BLENDING KETTLE TENDER 04/12/20 Ipratropium/Albuterol Sulfate (DUONEB 0.5-3(2.5) MG/3 ML) 3 Ml Ampul.neb 3 ML NEB QID PRN for WHEEZING for 21 Days, #1 BOX 0 Refills Prov: EVY LEVINE APRN 04/12/20 Albuterol Sulfate (Proair Hfa) 8.5 Gm Hfa.aer.ad 2 PUFF IH PRN Q4-6HRS PRN for wheezing for 21 Days, #1 INHALER 0 Refills Prov: EVY LEVINE APRN 04/12/20 Problem Qualifiers Primary Impression: Asthma exacerbation Asthma severity: mild Asthma persistence: unspecified Qualified Codes: J45.901 - Unspecified asthma with (acute) exacerbation EVY LEVINE BLENDING KETTLE TENDER Apr 12, 2020 18:28
[2020-04-12] MEDS ORDERED: PRED50TA PO (18:36)
== END 2020-04-12 18:35 | disposition home or self-care (01) ==
LOC: ER 17:14
DX: J45.901 Unspecified asthma with (acute) exacerbation (principal); E11.9 Type 2 diabetes mellitus without complications; E66.9 Obesity, unspecified; Z68.41 Body mass index [BMI] 40.0-44.9, adult; Z90.710 Acquired absence of both cervix and uterus; Z90.49 Acquired absence of other specified parts of digestive tract; Z98.51 Tubal ligation status; Z98.890 Other specified postprocedural states
CPT/HCPCS: 94640; 99284; J7512; J7613

== ENCOUNTER 2020-04-23 12:16 | Emergency (ER) | payer SELFPAY ==
[~2020-04-23] VITALS: Ht 165.1 cm; Wt 118.2 kg
[2020-04-23 12:31] VITALS: BP 122/70
[2020-04-23] MEDS ORDERED: IPRATRPIUM/ALBUTEROL 0.5/2.5MG 3 ML NEBU. NEB ONE (12:45)
[2020-04-23] MEDS ORDERED: DEXAMETHASONE 4 MG TABLET PO SCH (13:00)
--- NOTE | 2020-04-23 13:13 | ED.ADGEN ---
Past Medical History Past Medical History: Asthma, Diabetes-Type II, UTI, Other Additional Past Medical Histor: psuedo tumors, obesity Past Surgical History: Cholecystectomy, Hysterectomy, Tubal ligation Additional Past Surgical Histo: hernia repair Smoking Status: Never Smoker Alcohol Use: None Drug Use: None General Adult EDM: Chief Complaint: ASTHMA HPI: HPI: Patient is a 44 year old female who presents to the emergency department with complaints of an asthma exacerbation. Patient reports she was seen here last week for the same thing, she took 5 days of steroids and was feeling better until her symptoms began again today. She denies any fever, body aches, chills, sore throat, ear pain, headache, body aches, fatigue, chest pain, nausea, vomiting, diarrhea, or abdominal pain. She states that she has a dry cough in addition to her shortness of breath and wheezing. Patient took an albuterol nebulizer treatment at home with little relief improvement in her symptoms. She currently denies any pain. Review of Systems: Review of Systems: Complete ROS is negative unless otherwise noted in HPI. Current Medications: Current Medications Medications (Trade) Dose Ordered Sig/Douglas Start Time Stop Time Status Last Admin Dose Admin Albuterol/ Ipratropium (Duoneb) 3 ml 1X ONCE 04/23/20 12:45 04/23/20 12:46 DC 04/23/20 12:39 3 ML Dexamethasone (Decadron) 10 mg [id number] 04/23/20 13:00 04/23/20 13:22 DC 04/23/20 12:55 10 MG Allergies: Allergies: Allergies Coded Allergies Type Severity Reaction Last Updated Verified No Known Drug Allergies 03/31/16 No Physical Exam: PE: See Above Constitutional: Well developed, well nourished, no acute distress, non-toxic appearance, obese. [] HENT: Normocephalic, atraumatic, bilateral external ears normal, nose normal. [] Eyes: PERRLA, EOMI, conjunctiva normal, no discharge. [] Neck: Normal range of motion, no stridor. [] Cardiovascular:Heart rate regular rhythm Lungs & Thorax: Inspiratory and expiratory wheezes throughout, mild intercostal retractions, mild respiratory distress Skin: Warm, dry, no erythema, no rash. [] Extremities: No cyanosis, ROM intact, no edema. [] Neurologic: Alert and oriented X 3, no focal deficits noted. [] Psychologic: Affect normal, judgement normal, mood normal. [] Current Patient Data: Vital Signs: Vital Signs Date Time Temp Pulse Resp B/P (MAP) Pulse Ox O2 Delivery O2 Flow Rate FiO2 04/23/20 12:41 Room Air 04/23/20 12:31 99.0 68 22 122/70 (87) 96 99.0 EKG: EKG: [] Heart Score: Risk Factors: Risk Factors: DM, Current or recent (<one month) smoker, HTN, HLP, family history of CAD, obesity. Risk Scores: Score 0 - 3: 2.5% MACE over next 6 weeks - Discharge Home Score 4 - 6: 20.3% MACE over next 6 weeks - Admit for Clinical Observation Score 7 - 10: 72.7% MACE over next 6 weeks - Early Invasive Strategies Radiology/Procedures: Radiology/Procedures: [] Course & Med Decision Making: Course & Med Decision Making Pertinent Labs and Imaging studies reviewed. (See chart for details) 44-year-old female presents emergency room for shortness of breath and asthma exacerbation. The patient was given a DuoNeb breathing treatment in the emergency room and 10 mg of p.o. Decadron. She reported feeling better after these medications. Patient's O2 sat was 97% in inspiratory wheezing was gone, patient was no longer having retractions, and is able to speak full sentences. I encouraged patient to start taking a daily antihistamine such as Zyrtec and to continue using her albuterol MDI and nebulizer treatments at home. Encouraged her to return the emergency room if her symptoms worsen or do not improve with her home medications. Follow-up with her primary care doctor in 1 to 2 days, return to the ER symptoms worsen. Patient verbalized an understanding of home care, medications, follow-up, and return to ED instructions and was in agreement with the plan of care. []I have reviewed the PA/INVESTMENT ADVISOR's note and Plan of Care. I was available for consultation as needed during the patient's visit in the emergency department. I agree with the clinical impression, plans and disposition. Shelby Disclaimer: Shelby Disclaimer: This electronic medical record was generated, in whole or in part, using a voice recognition dictation system. Departure Departure Impression: Primary Impression: Asthma exacerbation Disposition: 01 DC HOME SELF CARE/HOMELESS Condition: STABLE Referrals: ALAN JERONIMO PA-C (PCP) Patient Instructions: Asthma Prevention-Brief, Asthma, Adult, [id number] Additional Instructions: Continue using your albuterol nebulizer and your MDI as needed for shortness of breath. I recommend that you also start taking a daily antihistamine such as Zyrtec. Alternate Tylenol or ibuprofen as needed for pain/fever. Increase clear fluids. Avoid airway triggers such as dairy products, smoke, fragrance, dust, and pollen. May take [id number] cough suppressants as needed. Follow-up with your primary care doctor in 1 to 2 days, return to the ER if symptoms worsen. Problem Qualifiers Primary Impression: Asthma exacerbation Asthma severity: mild Asthma persistence: unspecified Qualified Codes: J45.901 - Unspecified asthma with (acute) exacerbation EVY LEVINE APRN Apr 23, 2020 13:13 SANGEETHA ROJAS MD Apr 23, 2020 13:28
== END 2020-04-23 13:21 | disposition home or self-care (01) ==
LOC: ER 12:16
DX: J45.901 Unspecified asthma with (acute) exacerbation (principal); R06.02 Shortness of breath; E11.9 Type 2 diabetes mellitus without complications; Z90.710 Acquired absence of both cervix and uterus; Z90.49 Acquired absence of other specified parts of digestive tract; Z98.51 Tubal ligation status; Z98.890 Other specified postprocedural states
CPT/HCPCS: 94640; 99283

== ENCOUNTER 2020-06-24 23:15 | Emergency (ER) | payer SELFPAY ==
[~2020-06-24] VITALS: Ht 157.5 cm; Wt 122.0 kg
[2020-06-24 23:18] VITALS: BP 145/79
--- NOTE | 2020-06-24 23:34 | PHYS DOC ---
Past Medical History Past Medical History: Asthma, Diabetes-Type II, UTI, Other Additional Past Medical Histor: psuedo tumors, obesity Past Surgical History: Cholecystectomy, Hysterectomy, Tubal ligation Additional Past Surgical Histo: hernia repair Smoking Status: Never Smoker Alcohol Use: None Drug Use: None Adult General Chief Complaint Chief Complaint: ASTHMA HPI HPI Patient is a 44 year old female with a known past medical history of asthma presents emergency department complaint of new onset shortness of breath. Patient states over the last 48 hours has been having worsening sensation of shortness of breath and increased wheezing. Has been using her rescue inhaler without any significant improvement of her symptoms. Denies any recent cough, fever, chills or recent sick contacts. Review of Systems Review of Systems Constitutional: Denies fever or chills [] Eyes: Denies change in visual acuity, redness, or eye pain [] HENT: Denies nasal congestion or sore throat [] Respiratory: Denies cough or shortness of breath [] Cardiovascular: No additional information not addressed in HPI [] GI: Denies abdominal pain, nausea, vomiting, bloody stools or diarrhea [] : Denies dysuria or hematuria [] Musculoskeletal: Denies back pain or joint pain [] Integument: Denies rash or skin lesions [] Neurologic: Denies headache, focal weakness or sensory changes [] Endocrine: Denies polyuria or polydipsia [] All other systems were reviewed and found to be within normal limits, except as documented in this note. Current Medications Current Medications Current Medications Medications (Trade) Dose Ordered Sig/Douglas Start Time Stop Time Status Last Admin Dose Admin Albuterol/ Ipratropium (Duoneb) 9 ml 1X ONCE 06/24/20 23:45 06/24/20 23:46 DC 06/25/20 00:03 9 ML Prednisone (Prednisone) 60 mg 1X ONCE 06/24/20 23:45 06/24/20 23:46 DC 06/24/20 23:56 60 MG Allergies Allergies Allergies Coded Allergies Type Severity Reaction Last Updated Verified No Known Drug Allergies 03/31/16 No Physical Exam Physical Exam Constitutional: Well developed, well nourished, no acute distress, non-toxic appearance. [] HENT: Normocephalic, atraumatic, bilateral external ears normal, oropharynx moist, no oral exudates, nose normal. [] Eyes: PERRLA, EOMI, conjunctiva normal, no discharge. [] Neck: Normal range of motion, no tenderness, supple, no stridor. [] Cardiovascular:Heart rate regular rhythm, no murmur [] Lungs & Thorax: Bilateral expiratory wheezing without any rales or crackles Abdomen: Bowel sounds normal, soft, no tenderness, no masses, no pulsatile masses. [] Skin: Warm, dry, no erythema, no rash. [] Back: No tenderness, no CVA tenderness. [] Extremities: No tenderness, no cyanosis, no clubbing, ROM intact, no edema. [] Neurologic: Alert and oriented X 3, normal motor function, normal sensory function, no focal deficits noted. [] Psychologic: Affect normal, judgement normal, mood normal. [] Current Patient Data Vital Signs Vital Signs Date Time Temp Pulse Resp B/P (MAP) Pulse Ox O2 Delivery O2 Flow Rate FiO2 06/25/20 00:08 98 Room Air 06/24/20 23:18 98.3 94 20 145/79 (101) 98.3 Course & Med Decision Making Course & Med Decision Making Pertinent Labs and Imaging studies reviewed. (See chart for details) 44-year-old female presenting the emergency department appears to be in acute asthma exacerbation. We will treat the patient with duo nebs and steroids and reevaluate. Patient symptoms have resolved. Patient denies any be discharged home. Will discharge home with refill of her albuterol inhaler Dragon Disclaimer Dragon Disclaimer This electronic medical record was generated, in whole or in part, using a voice recognition dictation system. Departure Departure Impression: Primary Impression: Acute asthma exacerbation Disposition: 01 DC HOME SELF CARE/HOMELESS Condition: GOOD Referrals: ALAN JERONIMO PA-C (PCP) Patient Instructions: Asthma, Adult Additional Instructions: EMERGENCY DEPARTMENT GENERAL DISCHARGE INSTRUCTIONS Thank you for coming to [facility] Emergency Department (ED) today and trusting us with you care. We trust that you had a positive experience in our Emergency Department. If you wish to speak to the department management, you may call the Director at [phone]. YOUR FOLLOW UP INSTRUCTIONS ARE FOLLOWS: 1. Do you have a private Doctor? If you do not have a private doctor, please ask for a resource list of physicians or clinics that may be able to assist you with follow up care. 2. The Emergency Physicain has interpreted your x-rays. The X-Ray specialist will also review them. If there is a change in the findings, you will be notified in 48 hours when at all possible. 3. A lab test or culture has been done, your results will be reviewed and you will be notified if you need a change in treatment. ADDITIONAL INSTRUCTIONS AND INFORMATION: 1. Your care today has been supervised by a physician who is specially trained in emergency care. Many problems require more than one evaluation for a complete diagnosis and treatment. We recommend that you schedule your follow up appointment as recommended to ensure complete treatment of you illness or injury. If you are unable to obtain follow up care and continue to have a problem, or if your condition worsens, we recommend that you return to the ED. 2. We are not able to safely determine your condition over the phone nor are we able to give sound medical advice over the phone. For these safety reasons, if you call for medical advice we will ask you to come to the ED for further evaluation. 3. If you have any questions regarding these discharge instructions please call the ED at [phone]. SAFETY INFORMATION: In the interest of safety, wellness, and injury prevention; we encourage you to wear your sealbelt, if you smoke; quite smoking, and we encourage family to use a protective helmet for bicycling and other sporting events that present an increased risk for head injury. IF YOUR SYMPTOMS WORSEN OR NEW SYMPTOMS DEVELOP, OR YOU HAVE CONCERNS ABOUT YOUR CONDITION; OR IF YOUR CONDITION WORSENS WHILE YOU ARE WAITING FOR YOUR FOLLOW UP APPOINT MENT; EITHER CONTACT YOUR PRIMARY CARE DOCTOR, THE PHYSICIAN WHOSE NAME AND NUMBER YOU WERE GIVEN, OR RETURN TO THE ED IMMEDIATELY. Scripts Albuterol Sulfate (Proair Hfa) 8.5 Gm Hfa.aer.ad 1 PUFF INH PRN Q6HRS PRN for SHORTNESS OF BREATH for 30 Days, INHALER Prov: KATHIA PORTER MD 06/25/20 Albuterol Sulfate (ALBUTEROL SULFATE NEB SOLN) 2.5 Mg/3 Ml Vial.neb 1 VIAL NEB Q6HRS PRN for SHORTNESS OF BREATH, #25 VIAL Prov: KATHIA PORTER MD 06/25/20 KATHIA PORTER MD Jun 24, 2020 23:34
[2020-06-24] MEDS: predniSONE 20 MG TABLET PO ONE (23:56)
[2020-06-25] MEDS: IPRATRPIUM/ALBUTEROL 0.5/2.5MG 3 ML NEBU. NEB ONE (00:03)
[2020-06-25] MEDS ORDERED: ALBU2.5V5 NEB (01:48)
[2020-06-25] MEDS ORDERED: ALBU2.5V8 INH (01:48)
[2020-06-25] MEDS ORDERED: PRED20TA PO ×2 (02:34→02:36)
== END 2020-06-25 02:33 | disposition home or self-care (01) ==
LOC: ER 23:15
DX: J45.901 Unspecified asthma with (acute) exacerbation (principal); E11.9 Type 2 diabetes mellitus without complications
CPT/HCPCS: 94644; 99285; J7512

== ENCOUNTER 2020-07-26 20:44 | Emergency (ER) | payer SELFPAY ==
[~2020-07-26] VITALS: Ht 165.1 cm; Wt 120.5 kg
--- NOTE | 2020-07-26 21:07 | ED.ADGEN ---
Past Medical History Past Medical History: Asthma, Diabetes-Type II, UTI, Other Additional Past Medical Histor: psuedo tumors, obesity Past Surgical History: Cholecystectomy, Hysterectomy, Tubal ligation Additional Past Surgical Histo: hernia repair Smoking Status: Never Smoker Alcohol Use: None Drug Use: None General Adult EDM: Chief Complaint: ASTHMA HPI: HPI: Patient is a 44 year old female coming in for as exacerbations been worsening over the past week. Denies had a cough, fevers, vomiting or diarrhea. Patient is a history of asthma is currently only using rescue inhaler patient is waiting for her insurance kicks in. Patient is try to wait for the weekend to see her primary care provider but had an exacerbation when she was eating dinner tonight. Review of Systems: Review of Systems: All other systems within normal limits except for as noted in the HPI Current Medications: Current Medications Medications (Trade) Dose Ordered Sig/Douglas Start Time Stop Time Status Last Admin Dose Admin Albuterol Sulfate (Ventolin Neb Soln) 10 mg 1X ONCE 07/26/20 21:30 07/26/20 21:31 DC 07/26/20 21:26 10 MG Albuterol/ Ipratropium (Duoneb) 3 ml 1X ONCE 07/26/20 21:30 07/26/20 21:31 DC 07/26/20 21:27 3 ML Prednisone (Prednisone) 60 mg 1X ONCE 07/26/20 21:30 07/26/20 21:31 DC 07/26/20 21:11 60 MG Allergies: Allergies: Allergies Coded Allergies Type Severity Reaction Last Updated Verified No Known Drug Allergies 03/31/16 No Physical Exam: PE: Constitutional: Well developed, well nourished, no acute distress, non-toxic appearance. [] HENT: Normocephalic, atraumatic, bilateral external ears normal, nose normal. [] Eyes: PERRLA, conjunctiva normal, no discharge. [] Neck: No rigidity, supple, no stridor. [] Cardiovascular: Regular rate and rhythm, brisk cap refill [] Lungs & Thorax: Symmetric respirations, expiratory and expiratory wheezes, good air movement. [] Abdomen: Soft, nondistended. Skin: Warm, dry, no erythema, no rash. [] Back: Unremarkable Extremities: No deformities, range of motion grossly intact, no lower extremity edema [] Neurologic: Alert and oriented X 3, no focal deficits noted. [] Psychologic: Affect normal, judgement normal, mood normal. [] Current Patient Data: Vital Signs: Vital Signs Date Time Temp Pulse Resp B/P (MAP) Pulse Ox O2 Delivery O2 Flow Rate FiO2 07/26/20 22:19 76 18 127/61 (83) 97 Room Air 07/26/20 20:55 98.6 98.6 EKG: EKG: [] Heart Score: Risk Factors: Risk Factors: DM, Current or recent (<one month) smoker, HTN, HLP, family history of CAD, obesity. Risk Scores: Score 0 - 3: 2.5% MACE over next 6 weeks - Discharge Home Score 4 - 6: 20.3% MACE over next 6 weeks - Admit for Clinical Observation Score 7 - 10: 72.7% MACE over next 6 weeks - Early Invasive Strategies Radiology/Procedures: Radiology/Procedures: [] Course & Med Decision Making: Course & Med Decision Making Pertinent Labs and Imaging studies reviewed. (See chart for details) Including hour-long nebulizer and steroids. [] Dragon Disclaimer: Dragon Disclaimer: This electronic medical record was generated, in whole or in part, using a voice recognition dictation system. Departure Departure Impression: Primary Impression: Asthma exacerbation Disposition: 01 DC HOME SELF CARE/HOMELESS Condition: IMPROVED Referrals: ALAN JERONIMO PA-C (PCP) Patient Instructions: Asthma, Adult Scripts Ipratropium/Albuterol Sulfate (DUONEB 0.5-3(2.5) MG/3 ML) 3 Ml Ampul.neb 3 ML NEB QID PRN for WHEEZING for 10 Days, #40 EACH Prov: SHAGGY AQUINO MD 07/26/20 Prednisone (PREDNISONE) 50 Mg Tablet 1 TAB PO DAILY for steroid, #5 TAB Prov: SHAGGY AQUINO MD 07/26/20 SHAGGY AQUINO MD Jul 26, 2020 21:07
[2020-07-26] MEDS ORDERED: predniSONE 20 MG TABLET PO ONE (21:30)
[2020-07-26] MEDS ORDERED: IPRATRPIUM/ALBUTEROL 0.5/2.5MG 3 ML NEBU. NEB ONE (21:30)
[2020-07-26] MEDS ORDERED: ALBUTEROL SULFATE 2.5 MG/3 ML NEBU. CONT NEB ONE (21:30)
[2020-07-26] MEDS ORDERED: PRED50TA PO (23:04)
[2020-07-26] MEDS ORDERED: IPRA3AMP29 NEB (23:04)
[2020-07-26 23:27] VITALS: BP 123/95
== END 2020-07-26 23:31 | disposition home or self-care (01) ==
LOC: ER 20:44
DX: J45.901 Unspecified asthma with (acute) exacerbation (principal); E11.9 Type 2 diabetes mellitus without complications
CPT/HCPCS: 94644; 94760; 99285; J7512; J7613

== ENCOUNTER 2020-08-21 11:53 | Emergency (ER) | payer SELFPAY ==
[~2020-08-21] VITALS: Ht 165.1 cm; Wt 119.5 kg
[2020-08-21 12:01] VITALS: BP 148/91
[2020-08-21] MEDS ORDERED: predniSONE 10 MG TABLET PO ONE (12:30)
[2020-08-21] MEDS ORDERED: ALBUTEROL SULFATE 2.5 MG/3 ML NEBU. NEB ONE (12:30)
[2020-08-21] MEDS ORDERED: PRED50TA PO (12:50)
[2020-08-21] MEDS ORDERED: ALBU2.5V5 NEB (12:50)
--- NOTE | 2020-08-21 12:50 | ED.ADGEN ---
Past Medical History Past Medical History: Asthma, Diabetes-Type II, UTI, Other Additional Past Medical Histor: psuedo tumors, obesity Past Surgical History: Cholecystectomy, Hysterectomy, Tubal ligation Additional Past Surgical Histo: hernia repair Smoking Status: Never Smoker Alcohol Use: None Drug Use: None General Adult EDM: Chief Complaint: ASTHMA HPI: HPI: Patient is a 44 year old AA female who presents emergency department with complaints of shortness of breath and wheezing for the last 2 days. Patient reports history of asthma. She states she has tried taking a DuoNeb treatment with her home nebulizer with no improvement in her symptoms. She denies any fever, body aches, nausea, vomiting, diarrhea, sore throat, headache, chest pain, palpitations, or productive cough. Patient denies any new environmental exposures. She is not sure what has triggered her asthma. Patient currently denies any pain. She reports that she is out of albuterol for her nebulizer. Review of Systems: Review of Systems: Complete ROS is negative unless otherwise noted in HPI. Current Medications: Current Medications Medications (Trade) Dose Ordered Sig/Douglas Start Time Stop Time Status Last Admin Dose Admin Albuterol Sulfate (Ventolin Neb Soln) 2.5 mg 1X ONCE 08/21/20 12:30 08/21/20 12:31 DC 08/21/20 12:20 2.5 MG Prednisone (Prednisone) 50 mg 1X ONCE 08/21/20 12:30 08/21/20 12:31 DC 08/21/20 12:48 50 MG Allergies: Allergies: Allergies Coded Allergies Type Severity Reaction Last Updated Verified No Known Drug Allergies 03/31/16 No Physical Exam: PE: See Above Constitutional: Well developed, well nourished, no acute distress, non-toxic appearance, obese. [] HENT: Normocephalic, atraumatic, bilateral external ears normal, nose normal. [] Eyes: PERRLA, EOMI, conjunctiva normal, no discharge. [] Neck: Normal range of motion, no stridor. [] Cardiovascular:Heart rate regular rhythm Lungs & Thorax: Respirations even and unlabored, no retractions, speaking full sentences, inspiratory and expiratory wheezes present Skin: Warm, dry, no erythema, no rash. [] Extremities: No cyanosis, ROM intact, no edema. [] Neurologic: Alert and oriented X 3, no focal deficits noted. [] Psychologic: Affect normal, judgement normal, mood normal. [] Current Patient Data: Vital Signs: Vital Signs Date Time Temp Pulse Resp B/P (MAP) Pulse Ox O2 Delivery O2 Flow Rate FiO2 08/21/20 12:21 97 Room Air 08/21/20 12:01 98.6 84 20 148/91 (110) 98.6 EKG: EKG: [] Heart Score: Risk Factors: Risk Factors: DM, Current or recent (<one month) smoker, HTN, HLP, family history of CAD, obesity. Risk Scores: Score 0 - 3: 2.5% MACE over next 6 weeks - Discharge Home Score 4 - 6: 20.3% MACE over next 6 weeks - Admit for Clinical Observation Score 7 - 10: 72.7% MACE over next 6 weeks - Early Invasive Strategies Radiology/Procedures: Radiology/Procedures: [] Course & Med Decision Making: Course & Med Decision Making Pertinent Labs and Imaging studies reviewed. (See chart for details) 44-year-old female presented to the emergency department with complaints of asthma problems for the last 2 days. She was given albuterol treatment and 50 mg of prednisone in the emergency department she reported feeling better after these medications. I wrote prescriptions for albuterol nebulizer vials and prednisone for the patient to begin taking the prednisone tomorrow. Encouraged her to follow-up with her primary care doctor next week, patient states she already has an appointment scheduled for August 242020. Encouraged patient to return to the ER if her symptoms worsened or fever develop. Patient verbalized an understanding of home care, medications, follow-up, and return to ED instructions and was in agreement with the plan of care. [] Dragon Disclaimer: Dragon Disclaimer: This electronic medical record was generated, in whole or in part, using a voice recognition dictation system. Departure Departure Impression: Primary Impression: Asthma exacerbation Disposition: 01 DC HOME SELF CARE/HOMELESS Condition: STABLE Referrals: ALAN JERONIMO PA-C (PCP) Patient Instructions: Asthma Prevention-Brief Additional Instructions: Fill prescription(s) and use as directed. Alternate Tylenol or ibuprofen as needed for pain/fever. Increase clear fluids. Avoid airway triggers such as smoke, fragrance, dust, and pollen. Follow-up with your primary care doctor in 1-2 days, return to the ER if symptoms worsen or fever develops. Scripts Albuterol Sulfate (ALBUTEROL SULFATE NEB SOLN) 2.5 Mg/3 Ml Vial.neb 1 VIAL NEB PRN Q4HRS PRN for WHEEZING for 30 Days, #50 VIAL 1 Refill Prov: EVY LEVINE APRN 08/21/20 Prednisone (PREDNISONE) 50 Mg Tablet 1 TAB PO DAILY for 4 Days, #4 TAB 0 Refills Begin taking on 08/22/20, first dose was given in the ER. Prov: EVY LEVINE APRN 08/21/20 Problem Qualifiers Primary Impression: Asthma exacerbation Asthma severity: mild Asthma persistence: intermittent Qualified Codes: J45.21 - Mild intermittent asthma with (acute) exacerbation EVY LEVINE APRN Aug 21, 2020 12:50
== END 2020-08-21 13:08 | disposition home or self-care (01) ==
LOC: ER 11:53
DX: J45.21 Mild intermittent asthma with (acute) exacerbation (principal); E11.9 Type 2 diabetes mellitus without complications
CPT/HCPCS: 94640; 99283; J7512; J7613

== ENCOUNTER 2020-12-01 11:21 | Emergency (ER) | payer SELFPAY ==
[~2020-12-01] VITALS: Ht 165.1 cm; Wt 121.9 kg
[2020-12-01] MEDS ORDERED: PRED50TA PO (12:15)
[2020-12-01] MEDS ORDERED: IPRATRPIUM/ALBUTEROL 0.5/2.5MG 3 ML NEBU. NEB ONE (12:15)
[2020-12-01] MEDS ORDERED: predniSONE 20 MG TABLET PO ONE (12:15)
--- NOTE | 2020-12-01 12:15 | ED.ADGEN ---
Past Medical History Past Medical History: Asthma, Diabetes-Type II, UTI, Other Additional Past Medical Histor: psuedo tumors, obesity Past Surgical History: Cholecystectomy, Hysterectomy, Tubal ligation Additional Past Surgical Histo: hernia repair Smoking Status: Never Smoker Alcohol Use: None Drug Use: None General Adult EDM: Chief Complaint: ASTHMA HPI: HPI: Patient is a 44 year old female coming in for asthma exacerbation since yesterday. Patient had wheezing but no cough, fevers, sore throat or other symptoms. Has a history of multiple emergency department visits for asthma exacerbations. Patient states her primary care was not able to get her in to be seen. Is currently waiting for insurance approval of a long-acting beta agonist. Use nebulizer prior to arrival with some improvement. Patient requesting steroids. Review of Systems: Review of Systems: All other systems within normal limits except for as noted in the HPI Allergies: Allergies: Allergies Coded Allergies Type Severity Reaction Last Updated Verified No Known Drug Allergies 03/31/16 No Physical Exam: PE: Constitutional: Well developed, well nourished, no acute distress, non-toxic appearance. [] HENT: Normocephalic, atraumatic, bilateral external ears normal, nose normal. [] Eyes: PERRLA, conjunctiva normal, no discharge. [] Neck: No rigidity, supple, no stridor. [] Cardiovascular: Regular rate and rhythm, brisk cap refill [] Lungs & Thorax: Non labored symmetric respirations, no tachypnea or respiratory distress. Bilateral end expiratory wheezing [] Abdomen: Soft, nondistended. Skin: Warm, dry, no erythema, no rash. [] Back: Unremarkable Extremities: No deformities, range of motion grossly intact, no lower extremity edema [] Neurologic: Alert and oriented X 3, no focal deficits noted. [] Psychologic: Affect normal, judgement normal, mood normal. [] EKG: EKG: [] Heart Score: C/O Chest Pain: No Risk Factors: Risk Factors: DM, Current or recent (<one month) smoker, HTN, HLP, family history of CAD, obesity. Risk Scores: Score 0 - 3: 2.5% MACE over next 6 weeks - Discharge Home Score 4 - 6: 20.3% MACE over next 6 weeks - Admit for Clinical Observation Score 7 - 10: 72.7% MACE over next 6 weeks - Early Invasive Strategies Radiology/Procedures: Radiology/Procedures: [] Course & Med Decision Making: Course & Med Decision Making Pertinent Labs and Imaging studies reviewed. (See chart for details) [] Shelby Disclaimer: Shelby Disclaimer: This electronic medical record was generated, in whole or in part, using a voice recognition dictation system. Departure Departure Impression: Primary Impression: Asthma exacerbation Disposition: HOME / SELF CARE / HOMELESS Condition: STABLE Referrals: ALAN JERONIMO PA-C (PCP) Patient Instructions: Asthma Prevention-Brief Scripts Prednisone (PREDNISONE) 50 Mg Tablet 1 TAB PO DAILY for 4 Days, #4 TAB Prov: SHAGGY AQUINO MD 12/01/20 SHAGGY AQUINO MD Dec 01, 2020 12:15
[2020-12-01 12:19] VITALS: BP 135/79
== END 2020-12-01 12:38 | disposition home or self-care (01) ==
LOC: ER 11:21
DX: J45.901 Unspecified asthma with (acute) exacerbation (principal); E11.9 Type 2 diabetes mellitus without complications
CPT/HCPCS: 94640; 99283; J7512

== ENCOUNTER 2021-05-08 12:40 | Emergency (ER) | payer SELFPAY ==
[~2021-05-08] VITALS: Ht 160 cm; Wt 122.0 kg
[~2021-05-08 12:40] MED LIST changes: +CYCL10TA19 PO; -CYCL10TA2 PO
[2021-05-08] MEDS ORDERED: PROCHLORPERAZINE 10 MG/2 ML VIAL. IV ONE (14:45)
[2021-05-08] MEDS ORDERED: KETOROLAC 30 MG/ML VIAL. IVP ONE (14:45)
[2021-05-08] MEDS ORDERED: diphenhydrAMINE 50 MG/ML VIAL IVP ONE (14:45)
[2021-05-08] MEDS ORDERED: IV NORMAL SALINE 1000ML BAG 1,000 ML IV ONE (14:45)
--- NOTE | 2021-05-08 14:52 | PHYS DOC ---
Past Medical History Past Medical History: Asthma, Diabetes-Type II, Migraines Additional Past Medical Histor: psuedo tumors, obesity Past Surgical History: Cholecystectomy, Hysterectomy, Tubal ligation, Other Additional Past Surgical Histo: hernia repair, partiel hysterectomy Smoking Status: Never Smoker Alcohol Use: None Drug Use: None General Adult EDM: Chief Complaint: HEADACHE HPI: HPI: Patient is a 45-year-old female that presents today with headache. Patient states headache started 7 days ago on the left side of her head, then starting 3 days ago patient has some vision issues presents today for management of her headache. Patient does have a history of migraine headaches she believes this is different than her last one is just lasted a lot longer than her normal ones. Patient also has a lot of musculoskeletal pain in her neck and upper back area as well. Patient does state that she has had some chest tightness and wheezing which she related to her asthma. Patient denies weakness in any of her limbs or sensory issues as well Review of Systems: Review of Systems: Constitutional: Denies fever or chills. [] Eyes: visual acuity. [] HENT: Denies nasal congestion or sore throat. [] Respiratory: Denies cough or shortness of breath. [] Cardiovascular: Denies chest pain or edema. [] GI: Denies abdominal pain, nausea, vomiting, bloody stools or diarrhea. [] : Denies dysuria. [] Musculoskeletal: neck and upper back pain Integument: Denies rash. [] Neurologic: headache, denies focal weakness or sensory changes. [] Endocrine: Denies polyuria or polydipsia. [] Lymphatic: Denies swollen glands. [] Psychiatric: Denies depression or anxiety. [] Heart Score: C/O Chest Pain: N/A Risk Factors: Risk Factors: DM, Current or recent (<one month) smoker, HTN, HLP, family history of CAD, obesity. Risk Scores: Score 0 - 3: 2.5% MACE over next 6 weeks - Discharge Home Score 4 - 6: 20.3% MACE over next 6 weeks - Admit for Clinical Observation Score 7 - 10: 72.7% MACE over next 6 weeks - Early Invasive Strategies Allergies: Allergies: Allergies Coded Allergies Type Severity Reaction Last Updated Verified No Known Drug Allergies 03/31/16 No Physical Exam: PE: Constitutional: Well developed, well nourished, no acute distress, non-toxic appearance. [] HENT: Normocephalic, atraumatic, bilateral external ears normal, oropharynx moist, no oral exudates, nose normal. [] Eyes: PERRLA, EOMI, conjunctiva normal, no discharge. [] Neck: Normal range of motion, no tenderness, supple, no stridor. [] Cardiovascular:Heart rate regular rhythm, no murmur [] Lungs & Thorax: Bilateral breath sounds clear to auscultation [] Abdomen: Bowel sounds normal, soft, no tenderness, no masses, no pulsatile masses. [] Skin: Warm, dry, no erythema, no rash. [] Back: Tenderness with palpation along upper back and neck area, no signs and symptoms of trauma Extremities: No tenderness, no cyanosis, no clubbing, ROM intact, no edema. [] Neurologic: Alert and oriented X 3, normal motor function, normal sensory function, no focal deficits noted. [] Psychologic: Affect normal, judgement normal, mood normal. [] Current Patient Data: Labs: Laboratory Tests Test 05/08/21 14:40 White Blood Count 5.6 x10^3/uL Red Blood Count 5.30 x10^6/uL Hemoglobin 14.8 g/dL Hematocrit 43.6 % Mean Corpuscular Volume 82 fL Mean Corpuscular Hemoglobin 28 pg Mean Corpuscular Hemoglobin Concent 34 g/dL Red Cell Distribution Width 12.9 % Platelet Count 141 x10^3/uL Neutrophils (%) (Auto) 55 % Lymphocytes (%) (Auto) 32 % Monocytes (%) (Auto) 7 % Eosinophils (%) (Auto) 4 % Basophils (%) (Auto) 1 % Neutrophils # (Auto) 3.1 x10^3/uL Lymphocytes # (Auto) 1.8 x10^3/uL Monocytes # (Auto) 0.4 x10^3/uL Eosinophils # (Auto) 0.2 x10^3/uL Basophils # (Auto) 0.1 x10^3/uL Sodium Level 143 mmol/L Potassium Level 4.3 mmol/L Chloride Level 105 mmol/L Carbon Dioxide Level 27 mmol/L Anion Gap 11 Blood Urea Nitrogen 11 mg/dL Creatinine 0.5 mg/dL Estimated GFR (Cockcroft-Gault) 134.7 Glucose Level 117 mg/dL Calcium Level 8.9 mg/dL Current Medications Medications (Trade) Dose Ordered Sig/Douglas Route PRN Reason Start Time Stop Time Status Last Admin Dose Admin Sodium Chloride 1,000 ml @ 999 mls/hr 1X ONCE IV 05/08/21 14:45 05/08/21 15:45 05/08/21 15:15 Prochlorperazine Edisylate (Compazine) 10 mg 1X ONCE IV 05/08/21 14:45 05/08/21 14:49 DC 05/08/21 15:15 Ketorolac Tromethamine (Toradol 30mg Vial) 30 mg 1X ONCE IVP 05/08/21 14:45 05/08/21 14:53 DC 05/08/21 15:16 Diphenhydramine HCl (Benadryl) 25 mg 1X ONCE IVP 05/08/21 14:45 05/08/21 14:53 DC 05/08/21 15:15 Vital Signs: Vital Signs Date Time Temp Pulse Resp B/P (MAP) Pulse Ox O2 Delivery O2 Flow Rate FiO2 05/08/21 16:12 83 20 187/93 (124) 99 Room Air 05/08/21 15:25 69 20 154/77 (102) 99 Room Air 05/08/21 14:55 66 20 143/73 (96) 99 Room Air 05/08/21 14:25 64 20 173/99 (123) 99 Room Air 05/08/21 13:55 98.0 66 16 175/79 (111) 100 Room Air 98.0 Vital Signs Date Time Temp Pulse Resp B/P (MAP) Pulse Ox O2 Delivery O2 Flow Rate FiO2 05/08/21 13:55 98.0 66 16 175/79 (111) 100 Room Air 98.0 EKG: EKG: [] Radiology/Procedures: Radiology/Procedures: REASON: Headache with vision changes PROCEDURE: CT HEAD WO CONTRAST EXAMINATION: CT HEAD/BRAIN WO CLINICAL HISTORY: Headache with vision changes TECHNIQUE: Serial axial images without IV contrast were obtained from the vertex to the foramen magnum. CT Dose Reduction Employed: One or more of the following individualized dose reduction techniques were utilized for this examination: 1. Automated exposure control 2. Adjustment of the mA and/or kV according to patient size 3. Use of iterative reconstruction technique. COMPARISON: None FINDINGS: Acute Change: No evidence of an acute infarct or other acute parenchymal process. Hemorrhage: No evidence of acute intracranial hemorrhage. Mass Lesion/Mass Effect: No evidence of intracranial mass or extraaxial fluid collection. No significant mass effect. Parenchyma: Parenchyma within normal limits for age. Ventricles: Ventricles within normal limits for age. Paranasal Sinuses and Skull Base: Visualized paranasal sinuses clear. Visualized skull base and soft tissues unremarkable. IMPRESSION: No evidence of acute intracranial abnormality. Electronically signed by: Bj Hazel DO (05/08/2021 3:29 PM) [id number][] Course & Med Decision Making: Course & Med Decision Making Pertinent Labs and Imaging studies reviewed. (See chart for details) [id number] reassessment of patient done , patient states pain is gone and her vision issues are better. Patient has no nausea vomiting at this time. All labs and radiological images reviewed were all normal. We will send patient home with strict instructions to return if symptoms worsen or change in any way. [] Dragon Disclaimer: Dragon Disclaimer: This electronic medical record was generated, in whole or in part, using a voice recognition dictation system. Departure Departure Impression: Primary Impression: Migraine Qualified Codes: G43.809 - Other migraine, not intractable, without status migrainosus Disposition: HOME / SELF CARE / HOMELESS Condition: STABLE Referrals: NO PCP (PCP) Patient Instructions: Migraine Headache Additional Instructions: Continue current home medications as prescribed Follow-up with your primary care physician or with one of the physicians listed in the brochure that I gave you to follow-up in the next 5 to 7 days if no better Return to the emergency department if symptoms worsen or change in any way, inability to use 1 side your body or you have vision changes that are worsen than previously DILIA MIX [employer] CUPOLA CHARGER May 08, 2021 14:52
[2021-05-08 14:59] LABS: BASO # 0.1 x10^3/uL (0.0-0.2); BASO % 1 % (0-3); EOS # 0.2 x10^3/uL (0.0-0.7); EOS % 4 % (0-3); HEMATOCRIT 43.6 % (36.0-47.0); HEMOGLOBIN 14.8 g/dL (12.0-15.5); LYMPH # 1.8 x10^3/uL (1.0-4.8); LYMPH % 32 % (24-48); MEAN CORPUSCULAR HEMOGLOBIN 28 pg (25-35); MEAN CORPUSCULAR HGB CONC 34 g/dL (31-37); MEAN CORPUSCULAR VOLUME 82 fL (79-100); MONO # 0.4 x10^3/uL (0.0-1.1); MONO % 7 % (0-9); NEUT # 3.1 x10^3/uL (1.8-7.7); NEUT % 55 % (31-73); PLATELET COUNT 141 x10^3/uL (140-400); RED CELL DISTRIBUTION WIDTH 12.9 % (11.5-14.5); WHITE BLOOD COUNT 5.6 x10^3/uL (4.0-11.0)
[2021-05-08 15:05] LABS: CALCIUM 8.9 mg/dL (8.5-10.1); CREATININE 0.5 mg/dL (0.6-1.0); GFR 134.7; POTASSIUM 4.3 mmol/L (3.5-5.1)
--- NOTE | 2021-05-08 15:31 | RAD ---
EXAMINATION: CT HEAD/BRAIN WO CLINICAL HISTORY: Headache with vision changes TECHNIQUE: Serial axial images without IV contrast were obtained from the vertex to the foramen magnu m. CT Dose Reduction Employed: One or more of the following individualized dose reduction techniques ang e utilized for this examination: 1. Automated exposure control 2. Adjustment of the mA and/or kV ac cording to patient size 3. Use of iterative reconstruction technique. COMPARISON: None FINDINGS: Acute Change: No evidence of an acute infarct or other acute parenchymal process. Hemorrhage: No evidence of acute intracranial hemorrhage. Mass Lesion/Mass Effect: No evidence of intracranial mass or extraaxial fluid collection. No signific ant mass effect. Parenchyma: Parenchyma within normal limits for age. Ventricles: Ventricles within normal limits for age. Paranasal Sinuses and Skull Base: Visualized paranasal sinuses clear. Visualized skull base and soft tissues unremarkable. IMPRESSION: No evidence of acute intracranial abnormality. Electronically signed by: Bj Hazel DO (05/08/2021 3:29 PM) [id number]
[2021-05-08 16:12] VITALS: BP 187/93
== END 2021-05-08 16:19 | disposition home or self-care (01) ==
LOC: ER 12:40
DX: G43.809 Other migraine, not intractable, without status migrainosus (principal); J45.909 Unspecified asthma, uncomplicated; E11.9 Type 2 diabetes mellitus without complications
CPT/HCPCS: 36415; 70450; 80048; 85025; 96361; 96374; 96375; 99285; J0780; J1200; J1885; J7030

== ENCOUNTER → 2021-10-14 | Outpatient (CLI) | payer OTHER ==
[~2021-10-14] MED LIST changes: +ALBU2.5V14 NEB; +FLUT1BLS9 IH; +TOPI200T25 PO
--- NOTE | 2021-10-14 09:34 | PDOC1 ---
INITIAL PAIN CONSULT DATE OF SERVICE: DOS: DATE: 10/14/21 TIME: 09:28 CHIEF COMPLAINT: Chief Complaint: Neck and left upper extremity pain HISTORY OF PRESENT ILLNESS: 45-year-old female presents history of pain base the neck and left shoulder and upper extremity for about 2 months not the result of any specific injury or accident but is been increasing and woke up 1 day and the pain was there patient reports she felt she slept on it wrong but the pain is not gone away has become much worse despite stretching and strength exercises chiropractic treatment as well as taking muscle relaxers, Flexeril, patient has also had a Medrol Dosepak which was effective mildly at the beginning of the Dosepak but did not have any long-lasting effects. Patient has been taking hydrocodone as well which allows her to work with some comfort but still significant pain. Patient reports the pain is getting worse she is having significant fatigue in the left upper extremity which is affecting her work as well. Patient continues to do stretching and strength exercises but is not getting any relief. Patient reports that the pain is constant sharp throbbing and shooting in the left upper extremity anterior deltoid biceps into the forearm and hand specially in the thumb with numbness and tingling also in the posterior forearm and hand as well patient reports is cramping and aching burning radiating worse with repetitive motions weightlifting weightbearing reaching forward with weightbearing as well as reaching over her head with her left arm is becoming more more difficult patient reports awakens from sleep at least 5 times a night patient reports is not effective bowel bladder control does affect her ability to walk when she is up and around she feels the pain more noticeably especially with trying to lift things or reach forward. Patient reports difficulty with driving using left arm as well. Patient reports no loss of function but significant fatigability in the left upper extremity. 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 PAST MEDICAL HISTORY: PMH: Diabetes, shortness of breath, dizziness, asthma PREVIOUS SURGERIES: Past Surgical Hx: Hysterectomy, cholecystectomy, hernia repair umbilical, tubal ligation CURRENT MEDICATIONS: Current Meds: Active Scripts Medications Dose Route/Sig Max Daily Dose Days Date Category Metformin Hcl 500 Mg Tablet 500 Mg PO BIDWMEALS 10/14/21 Reported Wixela 250-50 Inhub (Fluticasone Propion/Salmeterol) 1 Each Blst.w.dev 1 Each IH BID 10/14/21 Reported Albuterol Sulfate Conc Neb Soln (Albuterol Sulfate) 2.5 Mg/0.5 Ml Vial.neb 1 Vial NEB Q6HRS 10/14/21 Reported Topamax (Topiramate) 200 Mg Tablet 1 Tab PO BID 30 10/14/21 Reported ALLERGIES; Allergies: Coded Allergies: gabapentin (Verified Allergy, Severe, Anxiety, 10/14/21) FAMILY HISTORY: Family Hx: Kidney disease and cancers SOCIAL HISTORY: Social Hx: Patient is under alcohol does not smoke not use any illegal illicit or recreational drugs is lives with her spouse and 2 children living at home lives locally in [facility] and 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 REVIEW OF SYSTEMS: ROS: Positive for those items mentioned in history of present illness, all systems are reviewed, otherwise negative ,and are complete full and well-documented on patient's chart. PHYSICAL EXAM: VS: Blood pressure is 111/59 pulse 55 respirations 18 temperature is 98.0 F height is 5 feet 4 inches weight is 263 pounds. PE: PHYSICAL EXAMINATION: GENERAL: The patient is awake, alert, oriented, appropriate, very pleasant in demeanor HEENT: Shows normocephalic, atraumatic. Extraocular movements are intact and symmetrical. Oral cavity: Mucous membranes moist and pink. Dentition is intact. NECK: Shows anterior throat supple without palpable lymphadenopathy noted. Swallow reflex symmetrical. CHEST: Shows normal on inspection. Breath sounds are clear bilaterally, distant but no rales or rhonchi or wheezes. HEART: Shows S1, S2 clear. No murmurs auscultated. ABDOMEN: Soft, nontender, nondistended. No palpable organomegaly is noted. BACK: Shows spine grossly in the midline. Normal-appearing cervical lordotic curvature. Cervical paraspinous muscles show symmetrical with inspection, palpation some moderate tenderness diffusely in the inferior aspect the cervical paraspinous muscles more on the left than the right but present bilaterally without atrophy hypertrophy or trigger points. Patient shows good rotation of motion with significant tenderness with left lateral rotation as well as extension and right lateral rotation with pain in the left base of the neck and shoulder as well. There is slightly increased thoracic kyphosis, some minor flattening of the lumbar lordotic curvature. EXTREMITIES: Upper extremities show deep tendon reflexes 2+ in the patellar and tendo calcaneus tendons. Motor exam is 5 on a scale of 5 with right d orsiflexion, extension, quadriceps and hamstring flexion and 4/5 on the left. Peripheral pulses are 2+ posterior tibial. No peripheral edema is noted bilaterally. Upper extremities are warm and dry to touch, equal in color and appearance. Shoulder shrug strong intact without loss of strength on resistance bilaterally as is abduction of the shoulder 90 degrees without loss of strength on resistance. SKIN: Shows warm and dry, good turgor. No edema. No sores, rashes or bruising throughout. IMPRESSION: Impression: 45-year-old female with 2-month history of pain base the neck left upper extremity radicular fashion following a C5-6 dermatomal distribution. MRI scan cervical spine as noted Asthma Diabetes Dizziness Plan: Options were discussed the patient including continued physical therapies, interventional techniques, and medication management. Patient like to initial techniques. We discussed a cervical epidural steroid injection using descriptions as well as anatomical models to describe the procedure. Patient will wait for preauthorization with insurance provider and once obtained we will have her return for translaminar approach C5-6 level cervical epidural steroid injection with fluoroscopic guidance. The meantime, patient will continue with stretching strength exercises as currently as well as oral analgesics Flexeril and hydrocodone as currently. MORGAN SHEN MD Oct 14, 2021 09:34
== END | disposition home or self-care (01) ==
LOC: PNCL 08:06
PROVIDERS: ATTEND Anesthesiology
DX: M79.602 Pain in left arm (principal); M54.2 Cervicalgia; E11.9 Type 2 diabetes mellitus without complications; J45.909 Unspecified asthma, uncomplicated; E66.9 Obesity, unspecified; I10 Essential (primary) hypertension; Z90.49 Acquired absence of other specified parts of digestive tract; Z90.710 Acquired absence of both cervix and uterus; Z98.51 Tubal ligation status; Z98.890 Other specified postprocedural states; Z79.84 Long term (current) use of oral hypoglycemic drugs; Z79.899 Other long term (current) drug therapy; Z88.8 Allergy status to other drugs, medicaments and biological substances
CPT/HCPCS: G0463